=== PATIENT | female | born 2000 | race Caucasian/White ===

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

== ENCOUNTER 2020-07-13 16:57 | Emergency (ER) | payer OTHER ==
[~2020-07-13] VITALS: Ht 152.4 cm; Wt 90.5 kg
[2020-07-13 16:59] VITALS: BP 150/73
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
[2020-07-13 17:52] LABS: BASO % 0 % (0-3); EOS # 0.2 x10^3/uL (0.0-0.7); EOS % 2 % (0-3); HEMATOCRIT 45.9 % (36.0-47.0); HEMOGLOBIN 15.3 g/dL (12.0-15.5); LYMPH # 2.2 x10^3/uL (1.0-4.8); LYMPH % 22 % (24-48); MEAN CORPUSCULAR HEMOGLOBIN 28 pg (25-35); MEAN CORPUSCULAR HGB CONC 33 g/dL (31-37); MEAN CORPUSCULAR VOLUME 84 fL (79-100); MONO # 0.8 x10^3/uL (0.0-1.1); MONO % 8 % (0-9); NEUT # 6.8 x10^3uL (1.8-7.7); NEUT % 68 % (31-73); PLATELET COUNT 296 x10^3/uL (140-400); RED BLOOD COUNT 5.49 x10^6/uL (3.50-5.40); RED CELL DISTRIBUTION WIDTH 14.3 % (11.5-14.5)
[2020-07-13 17:54] LABS: CALCIUM 9.6 mg/dL (8.5-10.1); CREATININE 0.9 mg/dL (0.6-1.0); GFR 80.7; POTASSIUM 3.7 mmol/L (3.5-5.1)
--- NOTE | 2020-07-13 18:04 | EKG ---
[address] [address] Test Date: 2020-07-13 Test Time: 17:40:54 Pat Name: ALEISHA ALICEA Department: Room: Gender: F Rn Procedure: : 2000 Requested By: HERRERA LOVING Order Number: [id number] Reading MD: Measurements Intervals [place] Rate: 89 P: 49 GA: 142 QRS: 19 QRSD: 76 T: 4 QT: 338 QTc: 412 Interpretive Statements SINUS RHYTHM NORMAL ECG RI6.02 Compared to ECG 07/13/2020 17:39:24 No significant changes
[2020-07-13 18:10] LABS: BACTERIA,URINE MOD /HPF (0-FEW); BILIRUBIN,URINE NEG (NEG); CLARITY,URINE CLEAR; COLOR,URINE YELLOW; GLUCOSE,URINE NEG (NEG); NITRITE,URINE NEG (NEG); SQUAMOUS EPITHELIAL CELL,UR FEW /LPF; UROBILINOGEN,URINE 0.2 mg/dL (0.2 mg/dL)
[2020-07-13] MEDS: DICYCLOMINE HCL 20 MG TABLET PO ONE (18:33)
[2020-07-13] MEDS: ONDANSETRON ODT 4 MG TAB.RAPDIS PO ONE (18:33)
== END 2020-07-13 22:03 | disposition short-term general hospital (02) ==
LOC: ER 16:57
DX: S50.812A Abrasion of left forearm, initial encounter (principal); R45.89 Other symptoms and signs involving emotional state; R45.851 Suicidal ideations; F41.9 Anxiety disorder, unspecified; F32.9 Major depressive disorder, single episode, unspecified; Y08.89XA Assault by other specified means, initial encounter; Y93.89 Activity, other specified; Y92.89 Other specified places as the place of occurrence of the external cause; Y99.8 Other external cause status
CPT/HCPCS: 36415; 80048; 81001; 85025; 93005; 99285; Q0162; 87086

== ENCOUNTER 2020-07-21 17:32 | Emergency (ER) | payer OTHER ==
[~2020-07-21] VITALS: Ht 152.4 cm; Wt 90.5 kg
[2020-07-21 19:03] LABS: BASO % 0 % (0-3); EOS # 0.3 x10^3/uL (0.0-0.7); EOS % 3 % (0-3); HEMATOCRIT 46.9 % (36.0-47.0); HEMOGLOBIN 15.7 g/dL (12.0-15.5); LYMPH # 1.8 x10^3/uL (1.0-4.8); LYMPH % 18 % (24-48); MEAN CORPUSCULAR HEMOGLOBIN 28 pg (25-35); MEAN CORPUSCULAR HGB CONC 34 g/dL (31-37); MEAN CORPUSCULAR VOLUME 83 fL (79-100); MONO # 0.8 x10^3/uL (0.0-1.1); MONO % 8 % (0-9); NEUT # 7.3 x10^3uL (1.8-7.7); NEUT % 71 % (31-73); PLATELET COUNT 294 x10^3/uL (140-400); RED BLOOD COUNT 5.66 x10^6/uL (3.50-5.40); RED CELL DISTRIBUTION WIDTH 14.1 % (11.5-14.5); WHITE BLOOD COUNT 10.2 x10^3/uL (4.0-11.0)
[2020-07-21 19:18] LABS: CALCIUM 9.6 mg/dL (8.5-10.1); CREATININE 0.9 mg/dL (0.6-1.0); GFR 80.7
[2020-07-21 19:20] LABS: TOTAL BILIRUBIN 0.3 mg/dL (0.2-1.0)
[2020-07-21 20:18] LABS: BARBITURATES NEG (NEG); BENZODIAZEPINES NEG (NEG); CANNABINOIDS NEG (NEG); COCAINE NEG (NEG); METHADONE NEG (NEG); OPIATES NEG (NEG); PHENCYCLIDINE NEG (NEG)
[2020-07-21 20:27] LABS: AMPHETAMINE/METHAMPHETAMINE NEG (NEG)
[2020-07-21 20:31] LABS: BILIRUBIN,URINE NEG (NEG); CLARITY,URINE CLOUDY; COLOR,URINE YELLOW; GLUCOSE,URINE NEG (NEG)
[2020-07-21 20:32] LABS: BACTERIA,URINE MOD /HPF (0-FEW); NITRITE,URINE NEG (NEG); UROBILINOGEN,URINE 0.2 mg/dL (0.2 mg/dL)
[2020-07-21 20:33] LABS: SQUAMOUS EPITHELIAL CELL,UR MANY /LPF
--- NOTE | 2020-07-21 21:28 | PHYS DOC ---
Past History Past Medical History: Anxiety, Constipation, Depression (HERRERA LOVING APRN) Past Surgical History: No Surgical History (HERRERA LOVING APRN) Smoking: Non-smoker Alcohol Use: None Drug Use: None (HERRERA LOVING APRN) General Adult EDM: Chief Complaint: SUICIDAL IDEATION HPI: HPI: Patient is a 18-year-old female who presents with suicidal ideation. Patient is from [facility]. Patient states "I keep having thoughts that I want to harm myself again, I want to do something with scissors but they took the scissors away from me so I ran away and that is when they brought me here". When asked what her plan is to do she states "I do not know I just want to do something". She has made multiple times in the past and was recently let go from [employer] for noncompliance. PAT team consulted. Patient reporting urinary frequency, denies dysuria. (HERRERA LOVING APRN) Review of Systems: Review of Systems: Constitutional: Denies fever or chills Eyes: Denies change in visual acuity HENT: Denies nasal congestion or sore throat Respiratory: Denies cough or shortness of breath Cardiovascular: Denies chest pain or edema GI: Denies abdominal pain, nausea, vomiting, bloody stools or diarrhea : Denies dysuria, reports urinary frequency Musculoskeletal: Denies back pain or joint pain Integument: Denies rash Neurologic: Denies headache, focal weakness or sensory changes Endocrine: Denies polyuria or polydipsia Lymphatic: Denies swollen glands Psychiatric: Reports depression or anxiety (HERRERA LOVING APRN) Current Medications: Current Meds: Current Medications Medications (Trade) Dose Ordered Sig/Daniel Start Time Stop Time Status Last Admin Dose Admin Fosfomycin Tromethamine (Monurol) 3 gm 1X ONCE 07/21/20 21:30 07/21/20 21:31 (HERRERA LOVING APRN) Allergies: Allergies: Allergies Coded Allergies Type Severity Reaction Last Updated Verified No Known Drug Allergies 07/13/20 No (HERRERA LOVING APRN) Physical Exam: PE: Constitutional: Well developed, well nourished, no acute distress, non-toxic appearance. [] HENT: Normocephalic, atraumatic, bilateral external ears normal, oropharynx moist, no oral exudates, nose normal. [] Eyes: PERRLA, EOMI, conjunctiva normal, no discharge. [] Neck: Normal range of motion, no tenderness, supple, no stridor. [] Cardiovascular:Heart rate regular rhythm, no murmur [] Lungs & Thorax: Bilateral breath sounds clear to auscultation [] Abdomen: Bowel sounds normal, soft, no tenderness, no masses, no pulsatile masses. [] Skin: Warm, dry, no erythema, no rash. [] Back: No tenderness, no CVA tenderness. [] Extremities: No tenderness, no cyanosis, no clubbing, ROM intact, no edema. [] Neurologic: Alert and oriented X 3, normal motor function, normal sensory function, no focal deficits noted. [] Psychologic: Affect anxious, judgement abnormal, tearful (HERRERA LOVING APRN) PE: Constitutional: Well developed, well nourished, no acute distress, non-toxic appearance HENT: Normocephalic, atraumatic Eyes: Conjunctiva normal, no discharge Neck: Normal range of motion, no tenderness, supple Lungs & Thorax: No respiratory distress, equal chest rise and fall Abdomen: Soft, no tenderness Skin: Warm, dry, no erythema, no rash Extremities: No tenderness, ROM intact, no edema Neurologic: Alert and oriented X 3, no focal deficits noted Psychologic: Affect normal, judgment normal (WILDA DUMONT DO) Current Patient Data: Labs: Laboratory Tests Test 07/21/20 18:40 07/21/20 19:52 07/21/20 20:01 White Blood Count 10.2 x10^3/uL (4.0-11.0) Red Blood Count 5.66 x10^6/uL (3.50-5.40) H Hemoglobin 15.7 g/dL (12.0-15.5) H Hematocrit 46.9 % (36.0-47.0) Mean Corpuscular Volume 83 fL (79-100) Mean Corpuscular Hemoglobin 28 pg (25-35) Mean Corpuscular Hemoglobin Concent 34 g/dL (31-37) Red Cell Distribution Width 14.1 % (11.5-14.5) Platelet Count 294 x10^3/uL (140-400) Neutrophils (%) (Auto) 71 % (31-73) Lymphocytes (%) (Auto) 18 % (24-48) L Monocytes (%) (Auto) 8 % (0-9) Eosinophils (%) (Auto) 3 % (0-3) Basophils (%) (Auto) 0 % (0-3) Neutrophils # (Auto) 7.3 x10^3uL (1.8-7.7) Lymphocytes # (Auto) 1.8 x10^3/uL (1.0-4.8) Monocytes # (Auto) 0.8 x10^3/uL (0.0-1.1) Eosinophils # (Auto) 0.3 x10^3/uL (0.0-0.7) Basophils # (Auto) 0.0 x10^3/uL (0.0-0.2) Sodium Level 140 mmol/L (136-145) Potassium Level 4.0 mmol/L (3.5-5.1) Chloride Level 104 mmol/L (98-107) Carbon Dioxide Level 28 mmol/L (21-32) Anion Gap 8 (6-14) Blood Urea Nitrogen 19 mg/dL (7-20) Creatinine 0.9 mg/dL (0.6-1.0) Estimated GFR (Cockcroft-Gault) 80.7 BUN/Creatinine Ratio 21 (6-20) H Glucose Level 102 mg/dL (70-99) H Calcium Level 9.6 mg/dL (8.5-10.1) Total Bilirubin 0.3 mg/dL (0.2-1.0) Aspartate Amino Transferase (AST) 17 U/L (15-37) Alanine Aminotransferase (ALT) 26 U/L (14-59) Alkaline Phosphatase 97 U/L (46-116) Total Protein 8.0 g/dL (6.4-8.2) Albumin 4.0 g/dL (3.4-5.0) Albumin/Globulin Ratio 1.0 (1.0-1.7) Urine Collection Type Unknown Urine Color Yellow Urine Clarity Cloudy Urine pH 6.0 Urine Specific Marshall >=1.030 Urine Protein Neg (NEG-TRACE) Urine Glucose (UA) Neg mg/dL (NEG) Urine Ketones (Stick) 15 mg/dL (NEG) Urine Blood Mod (NEG) Urine Nitrite Neg (NEG) Urine Bilirubin Neg (NEG) Urine Urobilinogen Dipstick 0.2 mg/dL (0.2 mg/dL) Urine Leukocyte Esterase Trace (NEG) Urine RBC 6-10 /HPF (0-2) Urine WBC 5-10 /HPF (0-4) Urine Squamous Epithelial Cells Many /LPF Urine Bacteria Mod /HPF (0-FEW) Urine Opiates Screen Neg (NEG) Urine Methadone Screen Neg (NEG) Urine Barbiturates Neg (NEG) Urine Phencyclidine Screen Neg (NEG) Urine Amphetamine/Methamphetamine Neg (NEG) Urine Benzodiazepines Screen Neg (NEG) Urine Cocaine Screen Neg (NEG) Urine Cannabinoids Screen Neg (NEG) Urine Ethyl Alcohol Neg (NEG) POC Urine HCG, Qualitative hcg negative (Negative) Vital Signs: Vital Signs Date Time Temp Pulse Resp B/P (MAP) Pulse Ox O2 Delivery O2 Flow Rate FiO2 07/21/20 17:40 99.3 90 20 125/82 (96) 99 (HERRERA LOVING APRN) EKG: EKG: [] (HERRERA LOVING APRN) Radiology/Procedures: Radiology/Procedures: [] (HERRERA LOVING APRN) Heart Score: Risk Factors: Risk Factors: DM, Current or recent (<one month) smoker, HTN, HLP, family history of CAD, obesity. Risk Scores: Score 0 - 3: 2.5% MACE over next 6 weeks - Discharge Home Score 4 - 6: 20.3% MACE over next 6 weeks - Admit for Clinical Observation Score 7 - 10: 72.7% MACE over next 6 weeks - Early Invasive Strategies (HERRERA LOVING APRN) Course & Med Decision Making: Course & Med Decision Making Pertinent Labs and Imaging studies reviewed. (See chart for details) []Patient is a 18-year-old female who presents with suicidal ideation. Patient is from [facility]. Patient states "I keep having thoughts that I want to harm myself again, I want to do something with scissors but they took the scissors away from me so I ran away and that is when they brought me here". When asked what her plan is patient states "I do not know I just want to do something". She has made attempts multiple times in the past, and was recently let go from [facility] for noncompliance. PAT team consulted. Patient is also reporting urinary frequency, denies dysuria. UA ordered. PAT team consulted to evaluate patient. CBC, BMP, UA, urine urgency, Covid test ordered. Lab work unremarkable. UA positive for infection. Negative . Fosfomycin given in the emergency room to treat infection. Increase fluids upon discharge. [facility] team counseled patient over Zoom. [facility] Team is calling facilities to find placement for patient. Will call us back when placement has been found. Rapid Covid test has been completed. Impression 1.Suicidal Ideation 2.UTI (HERRERA LOVING APRN) Course & Med Decision Making [id number]-signout received from Dr. Covarrubias for patient pending psychiatric reevaluation. Patient previously had not been accepted for inpatient psychiatric services. Patient with plan for reevaluation in the morning. 0830- Chato (PAT) evaluated patient. Recommend patient safe for discharge back to [facility] with safety plan. Patient stable for discharge with outpatient follow-up with PCP. Discussed findings and plan with patient, who acknowledges understanding and agreement. (WILDA DUMONT DO) Course & Med Decision Making Patient was not seen or evaluated by myself. Did discuss patient's work-up and disposition with SECURITY SYSTEMS SALES REPRESENTATIVE and agreed. Did not see patient over course of shift and handed off to day team. (RYNE COVARRUBIAS MD) Dragon Disclaimer: Dragon Disclaimer: This electronic medical record was generated, in whole or in part, using a voice recognition dictation system. (HERRERA LOVING APRN) Departure Departure: Impression: Primary Impression: Suicidal ideation Additional Impression: Bipolar disorder with depression Disposition: 01 DC HOME SELF CARE/HOMELESS Condition: STABLE Referrals: SANTANA NEVAREZ MD (PCP) Patient Instructions: Suicidal Feelings, How to Help Yourself Additional Instructions: You were seen in the emergency room for suicidal ideation. EMERGENCY DEPARTMENT GENERAL DISCHARGE INSTRUCTIONS Thank you for coming to [facility] (ED) today and trusting us with you care. We trust that you had a positivie experience in our Emergency Department. If you wish to speak to the department management, you may call the director at [phone]. YOUR FOLLOW UP INSTRUCTIONS ARE FOLLOWS: 1. Do you have a private Doctor? If you do not have a private doctor, please ask for a resource list of physicians or clinics that may be able to assist you with foll ow up care. 2. The Emergency Physician has interpreted your x-rays. The X-Ray specialist will also review them. If there is a change in the findings, you will be notified in 48 hours when at all possible. 3. A lab test or culture has been done, your results will be reviewed and you will be notified if you need a change in treatment. ADDITIONAL INSTRUCTIONS AND INFORMATION: 1. Your care today has been supervised by a physician who is specially trained in emergency care. Many problems require more than one evaluation for a complete diagnosis and treatment. We recommend that you schedule your follow up appointment as re commended to ensure complete treatment of you illness or injury. If you are unable to obtain follow up care and continue to have a problem, or if your condition worsens, we recommend that you return to the ED. 2. We are not able to safely determine your condition over the phone nor are we able to give sound medical advice over the phone. For these safety reasons, if you call for medical advice we will ask you to come to the ED for further evaluation. 3. If you have any questions regarding these discharge instructions please call the ED at [phone]. SAFETY INFORMATION: In the interest of safety, wellness, and injury prevention; we encourage you to wear your sealbelt, if you smoke; quite smoking, and we encourage family to use a protective helmet for bicycling and other sporting events that present an increased risk for head injury. IF YOUR SYMPTOMS WORSEN OR NEW SYMPTOMS DEVELOP, OR YOU HAVE CONCERNS ABOUT YOUR CONDITION; OR IF YOUR CONDITION WORSENS WHILE YOU ARE WAITING FOR YOUR FOLLOW UP APPOINTMENT; EITHER CONTACT YOUR PRIMARY CARE DOCTOR, THE PHYSICIAN WHOSE NAME AND NUMBER YOU WERE GIVEN, OR RETURN TO THE ED IMMEDIATELY. HERRERA LOVING APRN Jul 21, 2020 21:28 WILDA DUMONT DO Jul 22, 2020 11:20 RYNE COVARRUBIAS MD Jul 23, 2020 18:09
[2020-07-21] MEDS ORDERED: FOSFOMYCIN TROMETHAMINE 3 GM PACKET PO ONE (21:30)
[2020-07-21 21:52] VITALS: BP 121/76
[2020-07-22 00:50] LABS: ACETAMIN < 2.0 mcg/mL (10-30); ETHANOL < 10 mg/dL (0-10); SALIC < 2.8 mg/dL (2.8-20.0)
[2020-07-22] MEDS ORDERED: ACETAMINOPHEN 500 MG TABLET PO ONE (01:00)
[2020-07-22] MEDS ORDERED: ONDANSETRON ODT 4 MG TAB.RAPDIS PO ONE (01:00)
== END 2020-07-22 11:22 | disposition home or self-care (01) ==
LOC: ER 17:32
DX: R45.851 Suicidal ideations (principal); F31.9 Bipolar disorder, unspecified; N39.0 Urinary tract infection, site not specified; F41.9 Anxiety disorder, unspecified; Z20.822 Contact with and (suspected) exposure to COVID-19
CPT/HCPCS: 36415; 80053; 80307; 80329; 81001; 81025; 85025; 87086; 87426; 96372; 99285; C9803; G0480; J3010; Q0162; U0003

== ENCOUNTER 2020-11-22 11:35 | Emergency (ER) | payer OTHER ==
[~2020-11-22] VITALS: Ht 152.4 cm; Wt 96.0 kg
[2020-11-22 11:35] VITALS: BP 121/76
--- NOTE | 2020-11-22 13:35 | PHYS DOC ---
Past History Past Medical History: Anxiety, Bipolar, Constipation, Depression, Other Additional Past Medical Histor: Intellectual disability. Past Surgical History: No Surgical History Smoking: Non-smoker Alcohol Use: None Drug Use: None General Adult EDM: Chief Complaint: SUICIDAL IDEATION HPI: HPI: Patient is a 20-year-old female coming in via EMS for suicidal ideation. Patient denies a plan. States she is want someone to talk to has had increased stressors after family member recently. Otherwise been well no other complaints. Review of Systems: Review of Systems: All other systems within normal limits except for as noted in the HPI Allergies: Allergies: Allergies Coded Allergies Type Severity Reaction Last Updated Verified No Known Drug Allergies 11/22/20 No Physical Exam: PE: Constitutional: Well developed, well nourished, no acute distress, non-toxic appearance. [] HENT: Normocephalic, atraumatic, bilateral external ears normal, nose normal. [] Eyes: PERRLA, conjunctiva normal, no discharge. [] Neck: No rigidity, supple, no stridor. [] Cardiovascular: Regular rate and rhythm, brisk cap refill [] Lungs & Thorax: Non labored symmetric respirations, no tachypnea or respiratory distress [] Abdomen: Soft, nondistended. Skin: Warm, dry, no erythema, no rash. [] Back: Unremarkable Extremities: No deformities, range of motion grossly intact, no lower extremity edema [] Neurologic: Alert and oriented X 3, no focal deficits noted. [] Psychologic: Affect normal, judgement normal, mood normal. [] Current Patient Data: Labs: Laboratory Tests Test 11/22/20 12:28 POC Urine HCG, Qualitative hcg negative (Negative) Vital Signs: Vital Signs Date Time Temp Pulse Resp B/P (MAP) Pulse Ox O2 Delivery O2 Flow Rate FiO2 11/22/20 11:35 99.2 98 22 121/76 (91) 99 EKG: EKG: [] Radiology/Procedures: Radiology/Procedures: [] Heart Score: C/O Chest Pain: No Risk Factors: Risk Factors: DM, Current or recent (<one month) smoker, HTN, HLP, family history of CAD, obesity. Risk Scores: Score 0 - 3: 2.5% MACE over next 6 weeks - Discharge Home Score 4 - 6: 20.3% MACE over next 6 weeks - Admit for Clinical Observation Score 7 - 10: 72.7% MACE over next 6 weeks - Early Invasive Strategies Course & Med Decision Making: Course & Med Decision Making After PAT evaluation, discharged with safety plan Brad Disclaimer: Brad Disclaimer: This electronic medical record was generated, in whole or in part, using a voice recognition dictation system. Departure Departure: Impression: Primary Impression: Passive suicidal ideations Disposition: HOME / SELF CARE / HOMELESS Condition: STABLE Referrals: DANIEL CLARK MD (PCP) Patient Instructions: Suicidal Feelings, How to Help Yourself JENNIFER RODGERS MD November 22, 2020 13:35
== END 2020-11-22 15:20 | disposition home or self-care (01) ==
LOC: ER 11:35
DX: R45.851 Suicidal ideations (principal); F41.9 Anxiety disorder, unspecified; F32.9 Major depressive disorder, single episode, unspecified
CPT/HCPCS: 81025; 99285

== ENCOUNTER → 2021-01-12 | Outpatient (CLI) | payer MEDICARE, OTHER ==
[2021-01-12 10:21] LABS: BASO % 0 % (0-3); EOS # 0.4 x10^3/uL (0.0-0.7); EOS % 5 % (0-3); HEMOGLOBIN 14.7 g/dL (12.0-15.5); LYMPH # 1.9 x10^3/uL (1.0-4.8); LYMPH % 23 % (24-48); MEAN CORPUSCULAR HEMOGLOBIN 28 pg (25-35); MEAN CORPUSCULAR HGB CONC 33 g/dL (31-37); MEAN CORPUSCULAR VOLUME 85 fL (79-100); MONO # 0.8 x10^3/uL (0.0-1.1); MONO % 9 % (0-9); NEUT # 5.3 x10^3uL (1.8-7.7); NEUT % 64 % (31-73); PLATELET COUNT 286 x10^3/uL (140-400); RED BLOOD COUNT 5.19 x10^6/uL (3.50-5.40); RED CELL DISTRIBUTION WIDTH 14.4 % (11.5-14.5); WHITE BLOOD COUNT 8.4 x10^3/uL (4.0-11.0)
[2021-01-12 10:33] LABS: ALBUMIN 3.8 g/dL (3.4-5.0); ALBUMIN/GLOBULIN RATIO 1.1 (1.0-1.7); CALCIUM 9.1 mg/dL (8.5-10.1); CREATININE 0.8 mg/dL (0.6-1.0); GFR 91.4; POTASSIUM 4.2 mmol/L (3.5-5.1); TOTAL BILIRUBIN 0.4 mg/dL (0.2-1.0); TOTAL PROTEIN 7.4 g/dL (6.4-8.2)
[2021-01-12 14:55] LABS: FREE T4 1.19 ng/dL (0.76-1.46); THYROID STIM HORMONE (TSH) 1.777 uIU/mL (0.358-3.740)
[2021-01-12 20:07] LABS: PROLACTIN 19.7 ng/mL (4.8-23.3)
[2021-01-12 23:06] LABS: HEMOGLOBIN A1C 5.7 % (4.8-5.6)
== END ==
LOC: LAB 08:43
PROVIDERS: ATTEND Clinical Nurse Specialist Psychiatric/Mental Health, Adult
DX: Z79.899 Other long term (current) drug therapy (principal)
CPT/HCPCS: 36415; 80053; 80061; 83036; 84146; 84439; 84443; 84480; 85025

== ENCOUNTER 2021-03-22 17:15 | Emergency (ER) | payer MEDICARE, OTHER ==
[~2021-03-22] VITALS: Ht 152.4 cm; Wt 95.1 kg
[2021-03-22] MEDS ORDERED: CEPH500T PO (17:32)
--- NOTE | 2021-03-22 17:32 | PHYS DOC ---
Past History Past Medical History: Anxiety, Bipolar, Constipation, Depression, Other Additional Past Medical Histor: Intellectual disability. (CONSTANTINE HENDRICKS APRN) Past Surgical History: No Surgical History (CONSTANTINE HENDRICKS APRN) Smoking: Non-smoker Alcohol Use: None Drug Use: None (CONSTANTINE HENDRICKS APRN) General Adult EDM: Chief Complaint: MANIC BEHAVIOR HPI: HPI: Patient is a 20-year-old female who presents to the ER for psychiatric evaluation. Patient states that she resides in a detention and got in an argument with another person who resides in the home and she ran away. The family found her and they got in a verbal argument and the police were involved and referred her to the ER for psychiatric evaluation. Patient reports that she did cut her left forearm with a rock that she had found to release but has no intention to commit suicide or homicide. Patient is alert and oriented x4. Patient is also concerned because she has a scratch to the posterior aspect of her right ankle and to believes it is getting infected since it does have surrounding redness and warmth. (CONSTANTINE HENDRICKS APRN) Review of Systems: Review of Systems: 14 body systems of the review of systems have been reviewed. See HPI for pertinent positive and negative responses, otherwise all other systems are negative, nonpertinent or noncontributory (CONSTANTINE HENDRICKS APRN) Allergies: Allergies: Allergies Coded Allergies Type Severity Reaction Last Updated Verified No Known Drug Allergies 11/22/20 No (CONSTANTINE HENDRICKS APRN) Physical Exam: PE: Constitutional: Well developed, well nourished, no acute distress, non-toxic appearance. [] HENT: Normocephalic, atraumatic, bilateral external ears normal, oropharynx moist, no oral exudates, nose normal. [] Eyes: PERRLA, EOMI, conjunctiva normal, no discharge. [] Neck: Normal range of motion, no stridor Cardiovascular:Heart rate regular rhythm, no murmur [] Lungs & Thorax: Bilateral breath sounds clear to auscultation [] Abdomen: Bowel sounds normal, soft, no tenderness, no masses, no pulsatile masses. [] Skin: Warm, dry, superficial lacerations noted to left forearm that do not require sutures and have no surrounding signs of infection, patient has a wound to the posterior aspect of her right ankle with scabbing and has surrounding redness and warmth without any drainage Back: No tenderness, normal range of motion Extremities: No tenderness, no cyanosis, no clubbing, ROM intact, no edema. [] Neurologic: Alert and oriented X 3, normal motor function, normal sensory function, no focal deficits noted. [] Psychologic: Affect normal, judgement normal, tearful (CONSTANTINE HENDRICKS APRN) Current Patient Data: Labs: Laboratory Tests Test 03/22/21 17:38 03/22/21 17:50 03/22/21 18:21 Urine Collection Type Unknown Urine Color Yellow Urine Clarity Clear Urine pH 5.5 Urine Specific Logan >=1.030 Urine Protein Trace Urine Glucose (UA) Neg mg/dL Urine Ketones (Stick) >=160 mg/dL Urine Blood Neg Urine Nitrite Neg Urine Bilirubin Mod Urine Urobilinogen Dipstick 0.2 mg/dL Urine Leukocyte Esterase Neg Urine RBC 0 /HPF Urine WBC 5-10 /HPF Urine Squamous Epithelial Cells Mod /LPF Urine Bacteria Many /HPF Urine Mucus Marked /LPF Sodium Level 143 mmol/L Potassium Level 3.8 mmol/L Chloride Level 105 mmol/L Carbon Dioxide Level 25 mmol/L Anion Gap 13 Blood Urea Nitrogen 14 mg/dL Creatinine 0.9 mg/dL Estimated GFR (Cockcroft-Gault) 79.8 BUN/Creatinine Ratio 16 Glucose Level 102 mg/dL Calcium Level 10.1 mg/dL Total Bilirubin 0.7 mg/dL Aspartate Amino Transf (AST/SGOT) 24 U/L Alanine Aminotransferase (ALT/SGPT) 33 U/L Alkaline Phosphatase 101 U/L Total Protein 7.4 g/dL Albumin 4.3 g/dL Albumin/Globulin Ratio 1.4 Urine Opiates Screen Neg Urine Methadone Screen Neg Urine Barbiturates Neg Urine Phencyclidine Screen Neg Urine Amphetamine/Methamphetamine Neg Urine Benzodiazepines Screen Neg Urine Cocaine Screen Neg Urine Cannabinoids Screen Neg Urine Ethyl Alcohol Neg Bedside Urine HCG, Qualitative hcg negative White Blood Count 9.4 x10^3/uL Red Blood Count 5.10 x10^6/uL Hemoglobin 14.6 g/dL Hematocrit 43.4 % Mean Corpuscular Volume 85 fL Mean Corpuscular Hemoglobin 29 pg Mean Corpuscular Hemoglobin Concent 34 g/dL Red Cell Distribution Width 14.3 % Platelet Count 298 x10^3/uL Neutrophils (%) (Auto) 63 % Lymphocytes (%) (Auto) 26 % Monocytes (%) (Auto) 9 % Eosinophils (%) (Auto) 2 % Basophils (%) (Auto) 0 % Neutrophils # (Auto) 5.9 x10^3uL Lymphocytes # (Auto) 2.5 x10^3/uL Monocytes # (Auto) 0.9 x10^3/uL Eosinophils # (Auto) 0.2 x10^3/uL Basophils # (Auto) 0.0 x10^3/uL Current Medications Medications (Trade) Dose Ordered Sig/Daniel Route PRN Reason Start Time Stop Time Status Last Admin Dose Admin Cephalexin HCl (Keflex) 500 mg 1X ONCE PO 03/22/21 17:30 03/22/21 17:31 DC 03/22/21 17:59 (CONSTANTINE HENDRICKS APRN) EKG: EKG: [] (CONSTANTINE HENDRICKS APRN) Radiology/Procedures: Radiology/Procedures: [] (CONSTANTINE HENDRICKS APRN) Heart Score: C/O Chest Pain: No Risk Factors: Risk Factors: DM, Current or recent (<one month) smoker, HTN, HLP, family history of CAD, obesity. Risk Scores: Score 0 - 3: 2.5% MACE over next 6 weeks - Discharge Home Score 4 - 6: 20.3% MACE over next 6 weeks - Admit for Clinical Observation Score 7 - 10: 72.7% MACE over next 6 weeks - Early Invasive Strategies (CONSTANTINE HENDRICKS APRN) Course & Med Decision Making: Course & Med Decision Making Pertinent Labs and Imaging studies reviewed. (See chart for details) [] Patient is a 20-year-old female being seen in the ER for psychiatric evaluation after getting into an argument with another member of the detention. Patient did self-harm by cutting her left forearm with a rock that she had found but has no suicidal or homicidal ideation. Lacerations are superficial and do not require suturing. Patient does have a old wound to her right p osterior ankle with surrounding redness and warmth and does require antibiotics and she was given her first dose in the ER. Screening lab work obtained for medical clearance. Patient to be evaluated by the psychiatric assessment team. 1900: Patient is medically clear lab work is unremarkable. Her urinalysis was contaminated with moderate epithelial cells, negative leuks.I discussed patients case with Dr. Covarrubias and he will assume patient care at this time. Awaiting PAT consult. (CONSTANTINE HENDRICKS APRN) Course & Med Decision Making Did not see or evaluate patient. Did not discuss patient with DIRECTOR OF RESOURCE DEVELOPMENT. Agree with DIRECTOR OF RESOURCE DEVELOPMENT's work-up and disposition per note. (RYNE COVARRUBIAS MD) Dragon Disclaimer: Dragon Disclaimer: This electronic medical record was generated, in whole or in part, using a voice recognition dictation system. (CONSTANTINE HENDRICKS APRN) Departure Departure: Disposition: HOME / SELF CARE / HOMELESS Condition: GOOD Referrals: DANIEL CLARK MD (PCP) Scripts Cephalexin (CEPHALEXIN) 500 Mg Tablet 1 TAB PO QID for laceration for 5 Days, #20 TAB 0 Refills Prov: CONSTANTINE HENDRICKS APRN 03/22/21 CONSTANTINE HENDRICKS APRN Mar 22, 2021 17:32 RYNE COVARRUBIAS MD Mar 22, 2021 20:33
[2021-03-22] MEDS: CEPHALEXIN 250 MG CAPSULE PO ONE (17:59)
[2021-03-22 18:03] LABS: BARBITURATES NEG (NEG); BENZODIAZEPINES NEG (NEG); CANNABINOIDS NEG (NEG); COCAINE NEG (NEG); METHADONE NEG (NEG); OPIATES NEG (NEG); PHENCYCLIDINE NEG (NEG)
[2021-03-22 18:05] LABS: CALCIUM 10.1 mg/dL (8.5-10.1); CREATININE 0.9 mg/dL (0.6-1.0); GFR 79.8; POTASSIUM 3.8 mmol/L (3.5-5.1)
[2021-03-22 18:07] LABS: AMPHETAMINE/METHAMPHETAMINE NEG (NEG)
[2021-03-22 18:11] LABS: ALBUMIN 4.3 g/dL (3.4-5.0); ALBUMIN/GLOBULIN RATIO 1.4 (1.0-1.7); TOTAL BILIRUBIN 0.7 mg/dL (0.2-1.0); TOTAL PROTEIN 7.4 g/dL (6.4-8.2)
[2021-03-22 18:15] LABS: BILIRUBIN,URINE MOD (NEG); CLARITY,URINE CLEAR; COLOR,URINE YELLOW; GLUCOSE,URINE NEG (NEG)
[2021-03-22 18:16] LABS: BACTERIA,URINE MANY /HPF (0-FEW); NITRITE,URINE NEG (NEG); RBC,URINE 0 /HPF (0-2); SQUAMOUS EPITHELIAL CELL,UR MOD /LPF; UROBILINOGEN,URINE 0.2 mg/dL (0.2 mg/dL)
[2021-03-22 18:52] LABS: BASO % 0 % (0-3); EOS # 0.2 x10^3/uL (0.0-0.7); EOS % 2 % (0-3); HEMATOCRIT 43.4 % (36.0-47.0); HEMOGLOBIN 14.6 g/dL (12.0-15.5); LYMPH # 2.5 x10^3/uL (1.0-4.8); LYMPH % 26 % (24-48); MEAN CORPUSCULAR HEMOGLOBIN 29 pg (25-35); MEAN CORPUSCULAR HGB CONC 34 g/dL (31-37); MEAN CORPUSCULAR VOLUME 85 fL (79-100); MONO # 0.9 x10^3/uL (0.0-1.1); MONO % 9 % (0-9); NEUT # 5.9 x10^3uL (1.8-7.7); NEUT % 63 % (31-73); PLATELET COUNT 298 x10^3/uL (140-400); RED CELL DISTRIBUTION WIDTH 14.3 % (11.5-14.5); WHITE BLOOD COUNT 9.4 x10^3/uL (4.0-11.0)
[2021-03-22 22:11] VITALS: BP 148/61
== END 2021-03-22 22:16 | disposition home or self-care (01) ==
LOC: ER 17:15
DX: Z00.8 Encounter for other general examination (principal); S51.812A Laceration without foreign body of left forearm, initial encounter; F41.9 Anxiety disorder, unspecified; F31.9 Bipolar disorder, unspecified; X78.8XXA Intentional self-harm by other sharp object, initial encounter; Y93.89 Activity, other specified; Y92.89 Other specified places as the place of occurrence of the external cause; Y99.8 Other external cause status
CPT/HCPCS: 36415; 80053; 80307; 81001; 81025; 85025; 87086; 99283

== ENCOUNTER 2021-03-23 01:14 | Emergency (ER) | payer MEDICARE, OTHER ==
[~2021-03-23] VITALS: Ht 152.4 cm; Wt 95.1 kg
[~2021-03-23 01:14] MED LIST: CEPH500T PO
--- NOTE | 2021-03-23 01:34 | PHYS DOC ---
Past History Past Medical History: Anxiety, Bipolar, Constipation, Depression, Other Additional Past Medical Histor: Intellectual disability. syncope (RYNE COVARRUBIAS MD) Past Surgical History: No Surgical History (RYNE COVARRUBIAS MD) Smoking: Non-smoker Alcohol Use: None Drug Use: None (RYNE COVARRUBIAS MD) Adult General Chief Complaint Chief Complaint: PSYCH EVALUATION HPI HPI Patient is a 20-year-old female with a past medical history significant for anxiety, depression and suicidal ideations and attempts who presents with a chief complaint of suicidal ideation. States she was in the ED earlier with similar symptoms but then felt that she has been a bother and felt like to go home. States that shortly after leaving she began having these feelings again like she would prefer to be , and started thinking about cutting her wrists or jumping in front of a train. Denies any alcohol or drug use. States she would like to be admitted to an inpatient facility to get help. Denies any recent traumas, travels, illnesses, chest pain, shortness of breath, abdominal pain, nausea, vomiting, dysuria, hematuria, blood in the stool or diarrhea. Denies any known ill contacts. (RYNE COVARRUBIAS MD) Review of Systems Review of Systems Review of systems otherwise unremarkable except noted in HPI (RYNE COVARRUBIAS MD) Allergies Allergies Allergies Coded Allergies Type Severity Reaction Last Updated Verified No Known Drug Allergies 03/23/21 No (RYNE COVARRUBIAS MD) Physical Exam Physical Exam Constitutional: Well developed, well nourished, no acute distress, non-toxic appearance. [] HENT: Normocephalic, atraumatic, bilateral external ears normal, oropharynx moist, no oral exudates, nose normal. [] Eyes: conjunctiva normal, no discharge. [] Neck: Normal range of motion, no tenderness, supple, no stridor. [] Cardiovascular:Heart rate regular rhythm, no murmur [] Lungs & Thorax: Bilateral breath sounds clear to auscultation [] Abdomen: soft, no tenderness, no masses, no pulsatile masses. [] Skin: Warm, dry, no erythema, no rash. [] Back: No tenderness, no CVA tenderness. [] Extremities: No tenderness, no cyanosis, no clubbing, ROM intact, no edema. [] Neurologic: Alert and oriented X 3, normal motor function, normal sensory function, no focal deficits noted. [] Psychologic: Affect normal, judgement normal, mood normal. [] (RYNE COVARRUBIAS MD) Current Patient Data Vital Signs Vital Signs Date Time Temp Pulse Resp B/P (MAP) Pulse Ox O2 Delivery O2 Flow Rate FiO2 03/23/21 01:22 98.1 93 18 144/92 (109) 98 Room Air (RYNE COVARRUBIAS MD) EKG EKG [] (RYNE COVARRUBIAS MD) Radiology/Procedures Radiology/Procedures [] (RYNE COVARRUBIAS MD) Heart Score C/O Chest Pain: No Risk Factors: Risk Factors: DM, Current or recent (<one month) smoker, HTN, HLP, family history of CAD, obesity. Risk Scores: Risk Factors: DM, Current or recent (<one month) smoker, HTN, HLP, family history of CAD, obesity. (RYNE COVARRUBIAS MD) Course & Med Decision Making Course & Med Decision Making Patient is 20-year-old female who presents with suicidal ideations and plan Vital signs not concerning. Physical exam noted above. Patient was just in the emergency department with full medical work-up. Rapid Covid negative. Laboratory analysis not concerning. PAT team felt patient was appropriate for inpatient admission as this patient as she states that she goes home she feels like she will harm herself. Pending placement, most likely signature. Patient care handed off to day team pending placement. (RYNE COVARRUBIAS MD) Course & Med Decision Making 0600- Sign out received from Dr. Covarrubias for patient with suicidal ideation and plan pending inpatient psychiatric placement. 0800- Acceptance to [facility] for inpatient psychiatric services with Dr. Phipps accepting. Discussed findings and plan with patient, who acknowledges understanding and agreement. (WILDA DUMONT DO) Dragon Disclaimer Dragon Disclaimer This electronic medical record was generated, in whole or in part, using a voice recognition dictation system. (RYNE COVARRUBIAS MD) Departure Departure: Impression: Primary Impression: Suicidal ideation [facility] Condition: GOOD Referrals: DANIEL CLARK MD (PCP) RYNE COVARRUBIAS MD Mar 23, 2021 01:33 WILDA DUMONT DO Mar 23, 2021 14:19
[2021-03-23 11:11] VITALS: BP 110/61
== END 2021-03-23 12:30 ==
LOC: ER 01:14
DX: R45.851 Suicidal ideations (principal); F41.9 Anxiety disorder, unspecified; F31.9 Bipolar disorder, unspecified; Z20.822 Contact with and (suspected) exposure to COVID-19
CPT/HCPCS: 87426; 99285; C9803; U0003

== ENCOUNTER 2021-04-27 15:15 | Emergency (ER) | payer MEDICARE, OTHER ==
[~2021-04-27] VITALS: Ht 152.4 cm; Wt 96.0 kg
[2021-04-27 16:02] LABS: BASO # 0.1 x10^3/uL (0.0-0.2); BASO % 1 % (0-3); EOS # 0.2 x10^3/uL (0.0-0.7); EOS % 2 % (0-3); HEMATOCRIT 44.5 % (36.0-47.0); HEMOGLOBIN 14.9 g/dL (12.0-15.5); LYMPH % 21 % (24-48); MEAN CORPUSCULAR HEMOGLOBIN 29 pg (25-35); MEAN CORPUSCULAR HGB CONC 34 g/dL (31-37); MEAN CORPUSCULAR VOLUME 86 fL (79-100); MONO % 11 % (0-9); NEUT # 6.4 x10^3uL (1.8-7.7); NEUT % 66 % (31-73); PLATELET COUNT 270 x10^3/uL (140-400); RED CELL DISTRIBUTION WIDTH 14.7 % (11.5-14.5); WHITE BLOOD COUNT 9.8 x10^3/uL (4.0-11.0)
[2021-04-27 16:12] LABS: CALCIUM 9.9 mg/dL (8.5-10.1); CREATININE 0.8 mg/dL (0.6-1.0); GFR 91.4; POTASSIUM 4.2 mmol/L (3.5-5.1)
[2021-04-27 16:18] LABS: ALBUMIN 4.1 g/dL (3.4-5.0); MAGNESIUM 2.1 mg/dL (1.8-2.4); TOTAL BILIRUBIN 0.6 mg/dL (0.2-1.0); TOTAL PROTEIN 8.1 g/dL (6.4-8.2)
[2021-04-27 16:19] LABS: BARBITURATES NEG (NEG); BENZODIAZEPINES NEG (NEG); CANNABINOIDS NEG (NEG); COCAINE NEG (NEG); METHADONE NEG (NEG); OPIATES NEG (NEG); PHENCYCLIDINE NEG (NEG)
--- NOTE | 2021-04-27 16:20 | RAD ---
XR EXAM OF ANKLE_RIGHT 3VIEWS Clinical indications: Reason: pain / Spl. Instructions: / History: Findings: No acute fracture or dislocation or osteolytic process is evident. The mortise ankle joint is intact. IMPRESSION: No acute osseous abnormality is evident. Electronically signed by: Lex Bhatt MD (04/27/2021 4:17 PM) [id number]
[2021-04-27 16:23] LABS: AMPHETAMINE/METHAMPHETAMINE NEG (NEG)
[2021-04-27 16:23] LABS: ACETAMIN < 2.0 mcg/mL (10-30); ETHANOL < 10 mg/dL (0-10); SALIC 2.2 mg/dL (2.8-20.0)
[2021-04-27 16:35] LABS: BILIRUBIN,URINE NEG (NEG); CLARITY,URINE CLEAR; COLOR,URINE YELLOW; GLUCOSE,URINE NEG (NEG)
[2021-04-27 16:36] LABS: BACTERIA,URINE MANY /HPF (0-FEW); NITRITE,URINE NEG (NEG); SQUAMOUS EPITHELIAL CELL,UR MOD /LPF; UROBILINOGEN,URINE 0.2 mg/dL (0.2 mg/dL)
[2021-04-27] MEDS: IBUPROFEN 600 MG TABLET. PO ONE (17:52)
[2021-04-27] MEDS: guaiFENesin 300 MG/15 ML LIQUID PO ONE (19:33)
--- NOTE | 2021-04-27 23:37 | PHYS DOC ---
Past History Past Medical History: Anxiety, Bipolar, Constipation, Depression, Other Additional Past Medical Histor: Intellectual disability. syncope (WILDA DUMONT DO) Past Surgical History: No Surgical History (WILDA DUMONT DO) Smoking: Non-smoker Alcohol Use: None Drug Use: None (WILDA DUMONT DO) General Adult EDM: Chief Complaint: SUICIDAL IDEATION HPI: HPI: 20-year-old female presents with report of suicidal ideation and depression that has been ongoing since being discharged from [facility] in February. Patient reports increasing thoughts. Patient reports she has thought about cutting herself however has not done so. Patient does have significant psychiatric history with admissions to inpatient psych. Patient reports that th last time she was seen for similar type of thoughts she was discharged home with a safety plan however patient reports symptoms have continued to point where she feels she needs a inpatient admission. Denies any ingestion of medications. Denies use of drugs. Patient also reports history of right ankle pain that has been ongoing for the past several weeks after mechanical trip and fall. Denies . (WILDA DUMONT DO) Review of Systems: Review of Systems: Constitutional: Denies fever or chills Eyes: Denies redness or eye pain HENT: Denies nasal congestion or sore throat Respiratory: Denies cough or shortness of breath Cardiovascular: Denies chest pain or palpitations GI: Denies abdominal pain, nausea, or vomiting : Denies dysuria or hematuria Musculoskeletal: Denies back pain; reports right ankle pain Integument: Denies rash or skin lesions Neurologic: Denies headache, focal weakness or sensory changes Complete systems were reviewed and found to be within normal limits, except as documented in this note. (WILDA DUMONT DO) Current Medications: Current Meds: Current Medications Medications (Trade) Dose Ordered Sig/Daniel Start Time Stop Time Status Last Admin Dose Admin Guaifenesin (Robitussin) 300 mg 1X ONCE 04/27/21 19:30 04/27/21 19:31 DC 04/27/21 19:33 300 MG Ibuprofen (Motrin) 600 mg 1X ONCE 04/27/21 16:30 04/27/21 16:31 DC 04/27/21 17:52 600 MG (WILDA DUMONT DO) Allergies: Allergies: Allergies Coded Allergies Type Severity Reaction Last Updated Verified No Known Drug Allergies 03/23/21 No (WILDA DUMONT DO) Physical Exam: PE: Constitutional: Well developed, well nourished, no acute distress, non-toxic a ppearance HENT: Normocephalic, atraumatic Eyes: PERRL, EOMI, conjunctiva normal, no discharge Neck: Normal range of motion, no tenderness, supple Lungs & Thorax: No respiratory distress, equal chest rise and fall Abdomen: Soft, no tenderness Skin: Warm, dry, no erythema, no rash Extremities: Right lateral malleolar tenderness, anterior drawer test negative, no edema Neurologic: Alert and oriented X 3, normal motor function, normal sensory function, no focal deficits noted Psychologic: Affect anxious, judgment abnormal, reports suicidal ideation with plan (WILDA DUMONT DO) Current Patient Data: Labs: Laboratory Tests Test 04/27/21 15:23 04/27/21 15:30 04/27/21 15:40 04/27/21 16:15 SARS-CoV-2 Antigen (Rapid) Negative (NEGATIVE) White Blood Count 9.8 x10^3/uL (4.0-11.0) Red Blood Count 5.20 x10^6/uL (3.50-5.40) Hemoglobin 14.9 g/dL (12.0-15.5) Hematocrit 44.5 % (36.0-47.0) Mean Corpuscular Volume 86 fL (79-100) Mean Corpuscular Hemoglobin 29 pg (25-35) Mean Corpuscular Hemoglobin Concent 34 g/dL (31-37) Red Cell Distribution Width 14.7 % (11.5-14.5) H Platelet Count 270 x10^3/uL (140-400) Neutrophils (%) (Auto) 66 % (31-73) Lymphocytes (%) (Auto) 21 % (24-48) L Monocytes (%) (Auto) 11 % (0-9) H Eosinophils (%) (Auto) 2 % (0-3) Basophils (%) (Auto) 1 % (0-3) Neutrophils # (Auto) 6.4 x10^3uL (1.8-7.7) Lymphocytes # (Auto) 2.0 x10^3/uL (1.0-4.8) Monocytes # (Auto) 1.0 x10^3/uL (0.0-1.1) Eosinophils # (Auto) 0.2 x10^3/uL (0.0-0.7) Basophils # (Auto) 0.1 x10^3/uL (0.0-0.2) Sodium Level 138 mmol/L (136-145) Potassium Level 4.2 mmol/L (3.5-5.1) Chloride Level 102 mmol/L (98-107) Carbon Dioxide Level 26 mmol/L (21-32) Anion Gap 10 (6-14) Blood Urea Nitrogen 11 mg/dL (7-20) Creatinine 0.8 mg/dL (0.6-1.0) Estimated GFR (Cockcroft-Gault) 91.4 BUN/Creatinine Ratio 14 (6-20) Glucose Level 88 mg/dL (70-99) Calcium Level 9.9 mg/dL (8.5-10.1) Magnesium Level 2.1 mg/dL (1.8-2.4) Total Bilirubin 0.6 mg/dL (0.2-1.0) Aspartate Amino Transferase (AST) 47 U/L (15-37) H Alanine Aminotransferase (ALT) 41 U/L (14-59) Alkaline Phosphatase 92 U/L (46-116) Total Protein 8.1 g/dL (6.4-8.2) Albumin 4.1 g/dL (3.4-5.0) Albumin/Globulin Ratio 1.0 (1.0-1.7) Salicylates Level 2.2 mg/dL (2.8-20.0) L Salicylate Last Dose Date Salicylate Last Dose Time Acetaminophen Level < 2.0 mcg/mL (10-30) L Acetaminophen Last Dose Date Acetaminophen Last Dose Time Ethyl Alcohol Level < 10 mg/dL (0-10) Urine Collection Type Unknown Urine Color Yellow Urine Clarity Clear Urine pH 5.5 Urine Specific Spring >=1.030 Urine Protein Neg (NEG-TRACE) Urine Glucose (UA) Neg mg/dL (NEG) Urine Ketones (Stick) 15 mg/dL (NEG) Urine Blood Neg (NEG) Urine Nitrite Neg (NEG) Urine Bilirubin Neg (NEG) Urine Urobilinogen Dipstick 0.2 mg/dL (0.2 mg/dL) Urine Leukocyte Esterase Trace (NEG) Urine RBC 1-2 /HPF (0-2) Urine WBC 11-20 /HPF (0-4) Urine Squamous Epithelial Cells Mod /LPF Urine Bacteria Many /HPF (0-FEW) Urine Opiates Screen Neg (NEG) Urine Methadone Screen Neg (NEG) Urine Barbiturates Neg (NEG) Urine Phencyclidine Screen Neg (NEG) Urine Amphetamine/Methamphetamine Neg (NEG) Urine Benzodiazepines Screen Neg (NEG) Urine Cocaine Screen Neg (NEG) Urine Cannabinoids Screen Neg (NEG) Urine Ethyl Alcohol Neg (NEG) POC Urine HCG, Qualitative hcg negative (Negative) Vital Signs: Vital Signs Date Time Temp Pulse Resp B/P (MAP) Pulse Ox O2 Delivery O2 Flow Rate FiO2 04/27/21 15:20 98.9 88 18 135/79 (97) (WILDA DUMONT DO) Vital Signs: Vital Signs Date Time Temp Pulse Resp B/P (MAP) Pulse Ox O2 Delivery O2 Flow Rate FiO2 04/27/21 15:20 98.9 88 18 135/79 (97) 04/28/21 08:00 100 04/28/21 19:29 Room Air Vital Signs Date Time Temp Pulse Resp B/P (MAP) Pulse Ox O2 Delivery O2 Flow Rate FiO2 04/29/21 12:45 98.8 92 16 120/64 (82) 97 04/28/21 19:29 Room Air (NEAL VILLARREAL DO) EKG: EKG: [] (WILDA DUMONT DO) Radiology/Procedures: Radiology/Procedures: PROCEDURE: ANKLE RIGHT 3V XR EXAM OF ANKLE_RIGHT 3VIEWS Clinical indications: Reason: pain / Spl. Instructions: / History: Findings: No acute fracture or dislocation or osteolytic process is evident. The mortise ankle joint is intact. IMPRESSION: No acute osseous abnormality is evident. Electronically signed by: Lex Bhatt MD (04/27/2021 4:17 PM) [id number] (WILDA DUMONT DO) Heart Score: C/O Chest Pain: N/A (WILDA DUMONT DO) Course & Med Decision Making: Course & Med Decision Making Pertinent Labs and Imaging studies reviewed. (See chart for details) Patient presents with report of depression with suicidal ideation and plan. Reports has been ongoing since being discharged from [facility] in February. Patient reports symptoms have increased. History of recent ED visit for same with discharged home with safety plan. Patient reports concern that symptoms have escalated to point where she requires a inpatient admission. Patient also complaining of right ankle pain. Labs obtained and posted to chart. UA with signs of contamination. Otherwise labs appear unremarkable. X-ray of right ankle obtained without signs of acute fracture or dislocation. Patient medically cleared for psychiatric evaluation. Psychiatric assessment team evaluation performed with recommendation for inpatient psychiatric placement. Awaiting acceptance for inpatient psychiatric services. 0600-Sign out given to Dr. Villeda for further evaluation and final disposition. Discussed current findings and plan with patient, who acknowledges understanding and agreement. (WILDA DUMONT DO) Course & Med Decision Making The patient is medically stable for behavioral health admission. She has had no outbursts of behavior while in the emergency room. (SAEED HOOVER DO) Course & Med Decision Making I assumed complete care of patient after comprehensive signout from off going physician. Patient remains actively suicidal but has had no issues while in ER pending inpatient hospital transfer. Patient finally accepted to under the care of Dr. Velazquez for hospital transfer and subsequent inpatient psychiatric admission (NEAL VILLARREAL DO) Dragon Disclaimer: Dragon Disclaimer: This electronic medical record was generated, in whole or in part, using a voice recognition dictation system. (WILDA DUMONT DO) Departure Departure: Impression: Primary Impression: Suicidal ideation Additional Impression: Right ankle sprain Qualified Codes: S93.401A - Sprain of unspecified ligament of right ankle, initial encounter Disposition: [address] [place] [address] () Admitting Physician: Other (Dr. Velazquez) (NEAL VILLARREAL DO) Condition: STABLE Referrals: DANIEL CLARK MD (PCP) WILDA DUMONT DO Apr 27, 2021 23:37 SAEED HOOVER DO Apr 28, 2021 20:54 NEAL VILLARREAL DO Apr 29, 2021 16:19
[2021-04-28] MEDS: IBUPROFEN 600 MG TABLET. PO ONE (09:06)
[2021-04-28] MEDS: CEPHALEXIN 250 MG CAPSULE PO ONE ×2 (13:12→21:45)
[2021-04-28] MEDS: PHENAZOPYRIDINE 100 MG TABLET. PO ONE ×2 (13:13→21:46)
[2021-04-29] MEDS: IBUPROFEN 600 MG TABLET. PO ONE (08:26)
[2021-04-29] MEDS: CEPHALEXIN 250 MG CAPSULE PO ONE (08:27)
[2021-04-29 16:18] VITALS: BP 116/79
== END 2021-04-29 18:15 ==
LOC: ER 15:15
DX: R45.851 Suicidal ideations (principal); S93.401A Sprain of unspecified ligament of right ankle, initial encounter; F31.9 Bipolar disorder, unspecified; F41.9 Anxiety disorder, unspecified; Z20.822 Contact with and (suspected) exposure to COVID-19; X78.8XXA Intentional self-harm by other sharp object, initial encounter; Y93.89 Activity, other specified; Y92.89 Other specified places as the place of occurrence of the external cause; Y99.8 Other external cause status
CPT/HCPCS: 73610; 80053; 80307; 80329; 81001; 81025; 83735; 85025; 87086; 87426; 99285; G0480; U0003

== ENCOUNTER 2021-05-24 16:23 | Emergency (ER) | payer MEDICARE, OTHER ==
[~2021-05-24] VITALS: Ht 152.4 cm; Wt 99.1 kg
[2021-05-24 16:23] VITALS: BP 118/72
--- NOTE | 2021-05-24 16:45 | PHYS DOC ---
Past History Past Medical History: Anxiety, Bipolar, Constipation, Depression, Other Additional Past Medical Histor: Intellectual disability. syncope (CONSTANTINE HENDRICKS APRN) Past Surgical History: No Surgical History (CONSTANTINE HENDRICKS APRN) Smoking: Non-smoker Alcohol Use: None Drug Use: None (CONSTANTINE HENDRICKS APRN) General Adult EDM: Chief Complaint: SUICIDAL IDEATION HPI: HPI: Patient is a 20-year-old female that presents to the emergency department for psychiatric evaluation. Patient reports that she has had increased depression and feels stressed. She has history of anxiety, depression and bipolar disorder. She states that she was recently discharged from [facility] and was discharged with Zoloft and she has been taking that as prescribed. She does not follow up with anyone outpatient. Patient denies any suicidal ideation at this time but states that she does have a history of suicidal ideation and previous attempts. Patient denies any homicidal ideation patient denies any current complaints she just states "I am just not happy". (CONSTANTINE HENDRICKS APRN) Review of Systems: Review of Systems: 14 body systems of the review of systems have been reviewed. See HPI for pertinent positive and negative responses, otherwise all other systems are negative, nonpertinent or noncontributory (CONSTANTINE HENDRICKS APRN) Allergies: Allergies: Allergies Coded Allergies Type Severity Reaction Last Updated Verified banana Allergy Unknown Anaphylaxis 04/28/21 Yes (CONSTANTINE HENDRICKS APRN) Physical Exam: PE: Constitutional: Well developed, well nourished, no acute distress, non-toxic appearance. [] HENT: Normocephalic, atraumatic, bilateral external ears normal, oropharynx moist, no oral exudates, nose normal. [] Eyes: PERRL, EOMI, conjunctiva normal, no discharge. [] Neck: Normal range of motion, no stridor Cardiovascular:Heart rate regular rhythm, no murmur [] Lungs & Thorax: Bilateral breath sounds clear to auscultation [] Abdomen: Bowel sounds normal, soft, no tenderness, no masses, no pulsatile masses. [] Skin: Warm, dry, no erythema, no rash. [] Back: normal ROM Extremities: No tenderness, no cyanosis, no clubbing, ROM intact, no edema. [] Neurologic: Alert and oriented X 3, normal motor function, normal sensory function, no focal deficits noted. [] Psychologic: Affect normal, judgement normal, mood normal. [] (CONSTANTINE HENDRICKS APRN) Current Patient Data: Labs: Laboratory Tests Test 05/24/21 16:25 05/24/21 16:29 05/24/21 16:44 05/24/21 16:46 Urine Collection Type Unknown Urine Color Yellow Urine Clarity Hazy Urine pH 5.5 Urine Specific Adams >=1.030 Urine Protein Neg Urine Glucose (UA) Neg mg/dL Urine Ketones (Stick) Neg mg/dL Urine Blood Neg Urine Nitrite Neg Urine Bilirubin Neg Urine Urobilinogen Dipstick 0.2 mg/dL Urine Leukocyte Esterase Trace Urine RBC 0 /HPF Urine WBC 5-10 /HPF Urine Squamous Epithelial Cells Few /LPF Urine Bacteria Mod /HPF Urine Mucus Slight /LPF Urine Opiates Screen Neg Urine Methadone Screen Neg Urine Barbiturates Neg Urine Phencyclidine Screen Neg Urine Amphetamine/Methamphetamine Neg Urine Benzodiazepines Screen Neg Urine Cocaine Screen Neg Urine Cannabinoids Screen Neg Urine Ethyl Alcohol Neg Bedside Urine HCG, Qualitative hcg negative White Blood Count 10.1 x10^3/uL Red Blood Count 5.31 x10^6/uL Hemoglobin 15.1 g/dL Hematocrit 44.9 % Mean Corpuscular Volume 85 fL Mean Corpuscular Hemoglobin 29 pg Mean Corpuscular Hemoglobin Concent 34 g/dL Red Cell Distribution Width 14.2 % Platelet Count 335 x10^3/uL Neutrophils (%) (Auto) 61 % Lymphocytes (%) (Auto) 27 % Monocytes (%) (Auto) 9 % Eosinophils (%) (Auto) 3 % Basophils (%) (Auto) 0 % Neutrophils # (Auto) 6.2 x10^3uL Lymphocytes # (Auto) 2.7 x10^3/uL Monocytes # (Auto) 1.0 x10^3/uL Eosinophils # (Auto) 0.2 x10^3/uL Basophils # (Auto) 0.0 x10^3/uL Sodium Level 141 mmol/L Potassium Level 3.7 mmol/L Chloride Level 106 mmol/L Carbon Dioxide Level 24 mmol/L Anion Gap 11 Blood Urea Nitrogen 11 mg/dL Creatinine 0.9 mg/dL Estimated GFR (Cockcroft-Gault) 79.8 BUN/Creatinine Ratio 12 Glucose Level 105 mg/dL Calcium Level 9.3 mg/dL Total Bilirubin 0.5 mg/dL Aspartate Amino Transf (AST/SGOT) 19 U/L Alanine Aminotransferase (ALT/SGPT) 29 U/L Alkaline Phosphatase 92 U/L Total Protein 7.9 g/dL Albumin 3.9 g/dL Albumin/Globulin Ratio 1.0 SARS-CoV-2 Antigen (Rapid) Negative Laboratory Tests Test 05/24/21 16:29 POC Urine HCG, Qualitative hcg negative (Negative) (CONSTANTINE HENDRICKS APRN) EKG: EKG: [] (CONSTANTINE HENDRICKS APRN) Radiology/Procedures: Radiology/Procedures: [] (CONSTANTINE HENDRICKS APRN) Heart Score: C/O Chest Pain: N/A Risk Factors: Risk Factors: DM, Current or recent (<one month) smoker, HTN, HLP, family history of CAD, obesity. Risk Scores: Score 0 - 3: 2.5% MACE over next 6 weeks - Discharge Home Score 4 - 6: 20.3% MACE over next 6 weeks - Admit for Clinical Observation Score 7 - 10: 72.7% MACE over next 6 weeks - Early Invasive Strategies (CONSTANTINE HENDRICKS APRN) Course & Med Decision Making: Course & Med Decision Making Pertinent Labs and Imaging studies reviewed. (See chart for details) Patient presents to the emergency department for psychiatric evaluation. Patient is reporting that she is feeling depressed. Patient denies suicidal or homicidal ideation. Work up in the ER consisted of screening lab work for psych evaluation. Patient to be evaluated by psychiatric assessment team. Patient's work-up in the emergency department showed a urinary tract infection which will be treated with an antibiotic. Remainder of patient's lab work was unremarkable. Patient medically cleared at this time. Patient was evaluated by member of the psychiatric assessment team and a safety plan was developed. Patient was given resources to follow-up with. Patient advised to return to the emergency department if she develops any suicidal or homicidal ideation. Patient is complaining of a rash to her buttock, rash consistent with candiasis, treated with topical ointment. I discussed with patient all findings and diagnostic testing as well as the need to follow-up with PCP for further evaluation and treatment or return to the ER if any new or worsening symptoms. Strict return precautions were also discussed at length. Patient voiced understanding and agreement with the plan. Patient is hemodynamically stable at the time of disposition. (CONSTANTINE HENDRICKS APRN) Brad Disclaimer: Brad Disclaimer: This electronic medical record was generated, in whole or in part, using a voice recognition dictation system. (CONSTANTINE HENDRICKS APRN) Attending Co-Sign The patient was seen and interviewed as well as examined at the bedside. The chart was reviewed. The case was discussed. Agree with the plan of care. (SAEED HOOVER DO) Departure Departure: Impression: Primary Impression: Encounter for psychiatric assessment Additional Impression: Urinary tract infection Qualified Codes: N30.00 - Acute cystitis without hematuria Disposition: HOME / SELF CARE / HOMELESS Condition: GOOD Referrals: DANIEL CLARK MD (PCP) Patient Instructions: Depression, Adult Additional Instructions: You were seen in the emergency department for a psychiatric evaluation. Your blood work was unremarkable. Your urinalysis showed a urinary tract infection. This will be treated with an antibiotic. Please start and finish it completely. Please increase your fluids. Please avoid any bladder irritants like caffeine, sugary beverages or alcohol. Please follow-up with your primary care provider regarding these findings. You were evaluated by member of the psychiatric assessment team and a safety plan was developed, please adhere to the safety plan and follow-up with the resources that you were given. Continue to take your medications as prescribed. Please return to the emergency department if you develop any suicidal or homicidal ideation. Scripts Nystatin (NYSTATIN) 15 Gm Cream..g. 1 RAMBO TP BID for cutaneous candidiasis for 14 Days, #30 GM 0 Refills Prov: CONSTANTINE HENDRICKS APRN 05/24/21 Cephalexin (CEPHALEXIN) 500 Mg Tablet 1 TAB PO BID for uti for 7 Days, #14 TAB 0 Refills Prov: CONSTANTINE HENDRICKS APRN 05/24/21 CONSTANTINE HENDRICKS APRN May 24, 2021 16:45 SAEED HOOVER DO May 25, 2021 19:08
[2021-05-24 17:06] LABS: BARBITURATES NEG (NEG); BENZODIAZEPINES NEG (NEG); CANNABINOIDS NEG (NEG); COCAINE NEG (NEG); METHADONE NEG (NEG); OPIATES NEG (NEG); PHENCYCLIDINE NEG (NEG)
[2021-05-24 17:08] LABS: BASO % 0 % (0-3); EOS # 0.2 x10^3/uL (0.0-0.7); EOS % 3 % (0-3); HEMATOCRIT 44.9 % (36.0-47.0); HEMOGLOBIN 15.1 g/dL (12.0-15.5); LYMPH # 2.7 x10^3/uL (1.0-4.8); LYMPH % 27 % (24-48); MEAN CORPUSCULAR HEMOGLOBIN 29 pg (25-35); MEAN CORPUSCULAR HGB CONC 34 g/dL (31-37); MEAN CORPUSCULAR VOLUME 85 fL (79-100); MONO % 9 % (0-9); NEUT # 6.2 x10^3uL (1.8-7.7); NEUT % 61 % (31-73); PLATELET COUNT 335 x10^3/uL (140-400); RED BLOOD COUNT 5.31 x10^6/uL (3.50-5.40); RED CELL DISTRIBUTION WIDTH 14.2 % (11.5-14.5); WHITE BLOOD COUNT 10.1 x10^3/uL (4.0-11.0)
[2021-05-24 17:09] LABS: AMPHETAMINE/METHAMPHETAMINE NEG (NEG)
[2021-05-24 17:11] LABS: CALCIUM 9.3 mg/dL (8.5-10.1); CREATININE 0.9 mg/dL (0.6-1.0); GFR 79.8; POTASSIUM 3.7 mmol/L (3.5-5.1)
[2021-05-24 17:17] LABS: BACTERIA,URINE MOD /HPF (0-FEW); BILIRUBIN,URINE NEG (NEG); CLARITY,URINE HAZY; COLOR,URINE YELLOW; GLUCOSE,URINE NEG (NEG); NITRITE,URINE NEG (NEG); RBC,URINE 0 /HPF (0-2); SQUAMOUS EPITHELIAL CELL,UR FEW /LPF; UROBILINOGEN,URINE 0.2 mg/dL (0.2 mg/dL)
[2021-05-24 17:25] LABS: ALBUMIN 3.9 g/dL (3.4-5.0); TOTAL BILIRUBIN 0.5 mg/dL (0.2-1.0); TOTAL PROTEIN 7.9 g/dL (6.4-8.2)
[2021-05-24] MEDS ORDERED: CEPH500T PO (18:42)
[2021-05-24] MEDS ORDERED: NYST15CR TP (19:03)
== END 2021-05-24 19:04 | disposition home or self-care (01) ==
LOC: ER 16:23
DX: Z00.8 Encounter for other general examination (principal); N30.00 Acute cystitis without hematuria; F41.9 Anxiety disorder, unspecified; F31.9 Bipolar disorder, unspecified; Z20.822 Contact with and (suspected) exposure to COVID-19; Z91.013 Allergy to seafood
CPT/HCPCS: 80053; 80307; 81001; 81025; 85025; 87086; 87426; 99283; C9803; U0003

== ENCOUNTER 2021-05-24 20:15 | Emergency (ER) | payer MEDICARE, OTHER ==
[~2021-05-24] VITALS: Ht 152.4 cm; Wt 99.1 kg
[2021-05-24 20:15] VITALS: BP 106/73
[~2021-05-24 20:15] MED LIST changes: +NYST15CR TP
--- NOTE | 2021-05-24 21:12 | PHYS DOC ---
Past History Past Medical History: Anxiety, Bipolar, Constipation, Depression, Other Additional Past Medical Histor: Intellectual disability. syncope (CONSTANTINE HENDRICKS APRN) Past Surgical History: No Surgical History (CONSTANTINE HENDRICKS APRN) Smoking: Non-smoker Alcohol Use: None Drug Use: None (CONSTANTINE HENDRICKS APRN) General Adult EDM: Chief Complaint: SUICIDAL IDEATION HPI: HPI: Patient is a 20-year-old female who presents to the emergency department for suicidal ideation. Patient does not have an active plan. Patient was just seen in this emergency department within the hour for feeling depressed. Patient was medically cleared and evaluated by the psychiatric assessment team and a safety plan was developed and she was discharged to her caseworker Shanelle. Patient reports that she got an argument with Shanelle on the way home and is now suicidal. Patient denies any homicidal ideation. She denies any current complaints. (CONSTANTINE HENDRICKS APRN) Review of Systems: Review of Systems: 14 body systems of the review of systems have been reviewed. See HPI for pertinent positive and negative responses, otherwise all other systems are negative, nonpertinent or noncontributory (CONSTANTINE HENDRICKS APRN) Allergies: Allergies: Allergies Coded Allergies Type Severity Reaction Last Updated Verified banana Allergy Unknown Anaphylaxis 04/28/21 Yes (CONSTANTINE HENDRICKS APRN) Physical Exam: PE: Constitutional: Well developed, well nourished, no acute distress, non-toxic appearance. [] HENT: Normocephalic, atraumatic, bilateral external ears normal, oropharynx moist, no oral exudates, nose normal. [] Eyes: PERRL, EOMI, conjunctiva normal, no discharge. [] Neck: Normal range of motion, no stridor Cardiovascular:Heart rate regular rhythm, no murmur [] Lungs & Thorax: Bilateral breath sounds clear to auscultation [] Abdomen: Bowel sounds normal, soft, no tenderness, no masses, no pulsatile masses. [] Skin: Warm, dry, no erythema, no rash. [] Back: Normal range of motion Extremities: No tenderness, no cyanosis, no clubbing, ROM intact, no edema. [] Neurologic: Alert and oriented X 3, normal motor function, normal sensory function, no focal deficits noted. [] Psychologic: Affect normal, judgement normal, mood normal. [] (CONSTANTINE HENDRICKS APRN) Current Patient Data: Vital Signs: Vital Signs Date Time Temp Pulse Resp B/P (MAP) Pulse Ox O2 Delivery O2 Flow Rate FiO2 05/24/21 20:15 98.9 89 16 106/73 (84) 97 Room Air (CONSTANTINE HENDRICKS APRN) EKG: EKG: [] (CONSTANTINE HENDRICKS APRN) Radiology/Procedures: Radiology/Procedures: [] (CONSTANTINE HENDRICKS APRN) Heart Score: C/O Chest Pain: N/A Risk Factors: Risk Factors: DM, Current or recent (<one month) smoker, HTN, HLP, family history of CAD, obesity. Risk Scores: Score 0 - 3: 2.5% MACE over next 6 weeks - Discharge Home Score 4 - 6: 20.3% MACE over next 6 weeks - Admit for Clinical Observation Score 7 - 10: 72.7% MACE over next 6 weeks - Early Invasive Strategies (CONSTANTINE HENDRICKS APRN) C/O Chest Pain: N/A (NEAL VILLARREAL DO) Course & Med Decision Making: Course & Med Decision Making Pertinent Labs and Imaging studies reviewed. (See chart for details) [] Patient presents to the emergency department for suicidal ideation. Patient was seen within the hour in this ER and was medically cleared and evaluated by the psychiatric assessment team. Patient is now suicidal. Patient does not have an active plan. Patient was supposed to follow-up with [facility] tomorrow but she is requesting inpatient treatment. PAT team is attempting to place patient but is required to have Covid PCR results, placement patient at psychiatric facility pending Covid PCR results 0028. I discussed patients case with supervising physician and he will assume patient care at this time due to shift change 0055. (CONSTANTINE HENDRICKS APRN) Course & Med Decision Making I assumed care of patient after comprehensive signout from off going physician, no acute events overnight I saw patient yesterday and oversaw initial injury. Medically cleared and evaluated by mental health professionals at length Patient ultimately deemed safe for discharge back home with safety plan and arrangements for different skilled nursing placement in place Strict return precautions were discussed with patient with good understanding, all questions and concerns addressed prior to ER departure (NEAL VILLARREAL DO) Brad Disclaimer: Dragon Disclaimer: This electronic medical record was generated, in whole or in part, using a voice recognition dictation system. (CONSTANTINE HENDRICKS APRN) Attending Co-Sign The patient was seen and interviewed as well as examined at the bedside. The chart was reviewed. The case was discussed. Agree with the plan of care. (SAEED HOOVER DO) Departure Departure: Impression: Primary Impression: Encounter for psychiatric assessment Additional Impression: Suicidal ideation Disposition: HOME / SELF CARE / HOMELESS Condition: STABLE Referrals: DANIEL CLARK MD (PCP) Additional Instructions: As discussed prior to ER departure, you are medically cleared given your evaluation in the ER setting. You were evaluated by our behavioral health professionals and deemed fit for discharge home with strict adherence to provided safety plan If any concerning signs or symptoms present prior to outpatient follow-up with mental health professionals please do not hesitate to come back for repeat evaluation. It was a pleasure to take care of you and I wish you the best going forward CONSTANTINE HENDRICKS APRN May 24, 2021 21:11 NEAL VILLARREAL DO May 25, 2021 16:23 SAEED HOOVER DO May 25, 2021 19:18
--- NOTE | 2021-05-28 11:04 | NUR ---
Attempted to reach patient with covid results. No answer. Was not able to leave a message.
== END 2021-05-25 17:00 | disposition home or self-care (01) ==
LOC: ER 20:15
DX: Z00.8 Encounter for other general examination (principal); R45.851 Suicidal ideations; F41.9 Anxiety disorder, unspecified; F31.9 Bipolar disorder, unspecified; Z91.018 Allergy to other foods
CPT/HCPCS: 99285

== ENCOUNTER 2021-09-01 00:37 | Emergency (ER) | payer MEDICARE, OTHER ==
[~2021-09-01] VITALS: Ht 152.4 cm; Wt 99.1 kg
--- NOTE | 2021-09-01 00:41 | PHYS DOC ---
Past History Past Medical History: Anxiety, Bipolar, Constipation, Depression, Other Additional Past Medical Histor: Intellectual disability. syncope Past Surgical History: No Surgical History Smoking: Non-smoker Alcohol Use: None Drug Use: None Adult General HPI HPI Patient is a 20-year-old female with a past medical history significant for anxiety, depression, bipolar and fibromyalgia who presents to the emergency department with a chief complaint of vaginal bleeding. States she has had some spotting weeks had some darkish vaginal bleeding today with some lower abdominal cramping. States it is about time for her menstrual cycle. Denies any recent unprotected intercourse or history of STIs. States she is having some trouble at the home that she is living in and is going to leave and has not told him yet so she is having some stress about that. Denies any suicidal ideation, homicidal ideation, hallucinations or ingestions illicit drugs or alcohol. Denies any recent traumas, travels, illnesses, fevers, headache, lightheadedness, chest pain, shortness of breath, nausea, vomiting, diarrhea. Denies any dysuria. Review of Systems Review of Systems Review of systems otherwise unremarkable except noted in HPI Allergies Allergies Allergies Coded Allergies Type Severity Reaction Last Updated Verified banana Allergy Unknown Anaphylaxis 04/28/21 Yes Physical Exam Physical Exam Constitutional: Well developed, well nourished, no acute distress, non-toxic appearance. [] HENT: Normocephalic, atraumatic, oropharynx moist, no oral exudates, nose normal. [] Eyes: conjunctiva normal, no discharge. [] Neck: Normal range of motion, no tenderness, supple, no stridor. [] Cardiovascular:Heart rate regular rhythm, no murmur [] Lungs & Thorax: Review of systems otherwise unremarkable except noted in HPI Abdomen: Bowel sounds normal, soft, no tenderness, no masses, no pulsatile masses. [] Skin: Warm, dry, no erythema, no rash. [] Back: no CVA tenderness. [] Extremities: No tenderness, no cyanosis, no clubbing, ROM intact, no edema. [] Neurologic: Alert and oriented X 3, no focal deficits noted. [] Psychologic: Affect normal, judgement normal, mood normal. [] EKG EKG [] Radiology/Procedures Radiology/Procedures [] Heart Score C/O Chest Pain: No Risk Factors: Risk Factors: DM, Current or recent (<one month) smoker, HTN, HLP, family history of CAD, obesity. Risk Scores: Risk Factors: DM, Current or recent (<one month) smoker, HTN, HLP, family history of CAD, obesity. Course & Med Decision Making Course & Med Decision Making Patient is a 20-year-old female who presents with vaginal bleeding and cramps Vital signs not concerning. Physical exam noted above. negative. Patient states she went through only 1 pad today. Discussed differential with patient including dysfunctional uterine bleeding and start of her menstrual cycle Discussed symptomatic treatment at home. Advised to follow-up in the morning with a primary care physician. Given contact information and community resource packet for local free primary care physicians and other resources. Gave strict return precautions to the ED. [facility]. Patient grateful, verbalized understanding and agreed with plan of discharge. [] Dragon Disclaimer Dragon Disclaimer This electronic medical record was generated, in whole or in part, using a voice recognition dictation system. Departure Departure: Impression: Primary Impression: Vaginal bleeding Additional Impressions: Menstrual cramps Menstrual changes Disposition: 01 HOME / SELF CARE / HOMELESS Condition: STABLE Referrals: DANIEL CLARK MD (PCP) Patient Instructions: Uterine Bleeding, Dysfunctional Additional Instructions: Thank you for coming into the emergency department tonight and allowing us to take care of you. Please read all of the attached information carefully to go over things we discussed. You can continue Tylenol, ibuprofen and Benadryl every 6-8 hours as needed for menstrual cramps. Please follow-up in the morning with a primary care physician update on your ED visit and set up a follow-up as soon as you can. You were given a community resource sheet with local primary care physicians, the guidance Center and other resources. Please read fully and utilize as needed. Please come back with new or concerning symptoms as discus sed. Problem Qualifiers RYNE COVARRUBIAS MD Sep 01, 2021 00:41
[2021-09-01] MEDS ORDERED: lamotrigine (01:02)
[2021-09-01] MEDS ORDERED: trazodone (01:02)
[2021-09-01] MEDS ORDERED: melatonin (01:02)
[2021-09-01 01:26] LABS: COLOR,URINE YELLOW
[2021-09-01 01:27] LABS: BACTERIA,URINE FEW /HPF (0-FEW); CLARITY,URINE HAZY; GLUCOSE,URINE NEG (NEG); NITRITE,URINE NEG (NEG); RBC,URINE OCC /HPF (0-2); SQUAMOUS EPITHELIAL CELL,UR FEW /LPF; UROBILINOGEN,URINE 0.2 mg/dL (0.2 mg/dL)
[2021-09-01] MEDS ORDERED: ACETAMINOPHEN 500 MG TABLET PO ONE (01:30)
[2021-09-01] MEDS ORDERED: IBUPROFEN 600 MG TABLET. PO ONE (01:30)
[2021-09-01] MEDS ORDERED: diphenhydrAMINE HCL 25 MG CAPSULE PO ONE (01:30)
[2021-09-01] MEDS ORDERED: PANTOPRAZOLE IV 40 MG VIAL. IVP ONE (02:00)
[2021-09-01 03:30] VITALS: BP 108/78
== END 2021-09-01 03:30 | disposition home or self-care (01) ==
LOC: ER 00:37
DX: N94.6 Dysmenorrhea, unspecified (principal); N93.8 Other specified abnormal uterine and vaginal bleeding; F41.9 Anxiety disorder, unspecified; F31.9 Bipolar disorder, unspecified; M79.7 Fibromyalgia; Z91.018 Allergy to other foods
CPT/HCPCS: 81001; 81025; 87086; 99284; Q0163

== ENCOUNTER 2021-09-30 21:39 | Emergency (ER) | payer MEDICARE, OTHER ==
[~2021-09-30] VITALS: Ht 152.4 cm; Wt 99.1 kg
[~2021-09-30 21:39] MED LIST changes: +lamotrigine; +melatonin; +trazodone
[2021-09-30 22:58] LABS: BASO % 0 % (0-3); EOS # 0.1 x10^3/uL (0.0-0.7); EOS % 1 % (0-3); HEMATOCRIT 43.2 % (36.0-47.0); HEMOGLOBIN 14.5 g/dL (12.0-15.5); LYMPH # 2.2 x10^3/uL (1.0-4.8); LYMPH % 23 % (24-48); MEAN CORPUSCULAR HEMOGLOBIN 29 pg (25-35); MEAN CORPUSCULAR HGB CONC 34 g/dL (31-37); MEAN CORPUSCULAR VOLUME 85 fL (79-100); MONO # 0.9 x10^3/uL (0.0-1.1); MONO % 9 % (0-9); NEUT # 6.6 x10^3uL (1.8-7.7); NEUT % 67 % (31-73); PLATELET COUNT 282 x10^3/uL (140-400); RED BLOOD COUNT 5.07 x10^6/uL (3.50-5.40); RED CELL DISTRIBUTION WIDTH 14.4 % (11.5-14.5); WHITE BLOOD COUNT 9.8 x10^3/uL (4.0-11.0)
[2021-09-30 23:00] LABS: U PREG PATIENT NEGATIVE (NEG)
[2021-09-30 23:03] LABS: BARBITURATES NEG (NEG); BENZODIAZEPINES NEG (NEG); CANNABINOIDS NEG (NEG); COCAINE NEG (NEG); METHADONE NEG (NEG); OPIATES NEG (NEG); PHENCYCLIDINE NEG (NEG)
[2021-09-30 23:06] LABS: CALCIUM 9.5 mg/dL (8.5-10.1); CREATININE 0.9 mg/dL (0.6-1.0)
[2021-09-30 23:10] LABS: AMPHETAMINE/METHAMPHETAMINE NEG (NEG)
[2021-09-30 23:12] LABS: ALBUMIN/GLOBULIN RATIO 1.4 (1.0-1.7); TOTAL BILIRUBIN 0.5 mg/dL (0.2-1.0); TOTAL PROTEIN 6.8 g/dL (6.4-8.2)
[2021-09-30 23:19] LABS: BACTERIA,URINE MOD /HPF (0-FEW); CLARITY,URINE CLEAR; COLOR,URINE YELLOW; GLUCOSE,URINE NEG (NEG); NITRITE,URINE NEG (NEG); RBC,URINE 0 /HPF (0-2); SQUAMOUS EPITHELIAL CELL,UR MOD /LPF; UROBILINOGEN,URINE 0.2 mg/dL (0.2 mg/dL)
[2021-09-30 23:21] LABS: ACETAMIN < 2.0 mcg/mL (10-30); ETHANOL < 10 mg/dL (0-10); SALIC 1.2 mg/dL (2.8-20.0)
[2021-10-01] MEDS ORDERED: traZODone 50 MG TABLET. PO ONE (03:00)
--- NOTE | 2021-10-01 05:49 | PHYS DOC ---
Past History Past Medical History: Anxiety, Bipolar, Constipation, Depression, Other Additional Past Medical Histor: Intellectual disability. syncope Past Surgical History: No Surgical History Smoking: Non-smoker Alcohol Use: None Drug Use: None General Adult EDM: Chief Complaint: SUICIDAL IDEATION HPI: HPI: Patient is a 21-year-old female with history of bipolar disorder as well as depression. She presents with suicidal thoughts. Initially she told us that she was here for palpitations and had taken a caffeine pill earlier. [facility] she tells us that she has been depressed and is thought about taking a handful of pills or cutting her wrists. This feeling a depression has been getting worse. She does have feelings of hopelessness as well as a plan. Review of Systems: Review of Systems: Constitutional: Denies fever Eyes: Denies change in visual acuity or eye pain HENT: Denies sore throat Respiratory: Denies shortness of breath Cardiovascular: Denies chest pain GI: Denies abd pain : Denies dysuria Musculoskeletal: Denies back or extremity injury Integument: Denies rash or skin lesions Neurologic: Denies headache, focal weakness or sensory changes All other systems were reviewed and found to be within normal limits, except as documented in this note. Current Medications: Current Meds: Current Medications Medications (Trade) Dose Ordered Sig/Daniel Start Time Stop Time Status Last Admin Dose Admin Trazodone HCl (Desyrel) 50 mg 1X ONCE 10/01/21 03:00 10/01/21 03:09 DC 10/01/21 03:00 50 MG Allergies: Allergies: Allergies Coded Allergies Type Severity Reaction Last Updated Verified banana Allergy Severe Anaphylaxis 09/01/21 Yes Physical Exam: PE: Constitutional: Well developed, well nourished, no acute distress, non-toxic appearance. HENT: Normocephalic, atraumatic, bilateral external ears normal, mucosa moist, nose normal. Eyes: EOMI, conjunctiva normal, no discharge. Neck: Normal range of motion, supple, no stridor, no meningeal signs. Cardiovascular: Regular rate and rhythm Lungs & Thorax: Bilateral breath sounds clear to auscultation Abdomen: Soft, no tenderness or obvious masses Skin: Warm, dry, no erythema, no rash. Extremities: No tenderness, no cyanosis, no clubbing, ROM intact, no edema. Neurologic: Alert and oriented, normal motor function, normal sensory function, no focal deficits noted. Psychologic: Affect somewhat flat, judgement normal, mood is depressed. Current Patient Data: Labs: Laboratory Tests Test 09/30/21 21:41 09/30/21 22:25 POC Urine HCG, Qualitative hcg negative (Negative) White Blood Count 9.8 x10^3/uL (4.0-11.0) Red Blood Count 5.07 x10^6/uL (3.50-5.40) Hemoglobin 14.5 g/dL (12.0-15.5) Hematocrit 43.2 % (36.0-47.0) Mean Corpuscular Volume 85 fL (79-100) Mean Corpuscular Hemoglobin 29 pg (25-35) Mean Corpuscular Hemoglobin Concent 34 g/dL (31-37) Red Cell Distribution Width 14.4 % (11.5-14.5) Platelet Count 282 x10^3/uL (140-400) Neutrophils (%) (Auto) 67 % (31-73) Lymphocytes (%) (Auto) 23 % (24-48) L Monocytes (%) (Auto) 9 % (0-9) Eosinophils (%) (Auto) 1 % (0-3) Basophils (%) (Auto) 0 % (0-3) Neutrophils # (Auto) 6.6 x10^3uL (1.8-7.7) Lymphocytes # (Auto) 2.2 x10^3/uL (1.0-4.8) Monocytes # (Auto) 0.9 x10^3/uL (0.0-1.1) Eosinophils # (Auto) 0.1 x10^3/uL (0.0-0.7) Basophils # (Auto) 0.0 x10^3/uL (0.0-0.2) Urine Collection Type Unknown Urine Color Yellow Urine Clarity Clear Urine pH 6.0 Urine Specific [place] >=1.030 Urine Protein Neg (NEG-TRACE) Urine Glucose (UA) Neg mg/dL (NEG) Urine Ketones (Stick) 80 mg/dL (NEG) Urine Blood Neg (NEG) Urine Nitrite Neg (NEG) Urine Bilirubin Small (NEG) Urine Urobilinogen Dipstick 0.2 mg/dL (0.2 mg/dL) Urine Leukocyte Esterase Trace (NEG) Urine RBC 0 /HPF (0-2) Urine WBC 5-10 /HPF (0-4) Urine Squamous Epithelial Cells Mod /LPF Urine Bacteria Mod /HPF (0-FEW) Urine Test Negative (NEG) Sodium Level 140 mmol/L (136-145) Potassium Level 4.0 mmol/L (3.5-5.1) Chloride Level 103 mmol/L (98-107) Carbon Dioxide Level 23 mmol/L (21-32) Anion Gap 14 (6-14) Blood Urea Nitrogen 12 mg/dL (7-20) Creatinine 0.9 mg/dL (0.6-1.0) Estimated GFR (Cockcroft-Gault) 79.0 BUN/Creatinine Ratio 13 (6-20) Glucose Level 83 mg/dL (70-99) Calcium Level 9.5 mg/dL (8.5-10.1) Total Bilirubin 0.5 mg/dL (0.2-1.0) Aspartate Amino Transferase (AST) 28 U/L (15-37) Alanine Aminotransferase (ALT) 31 U/L (14-59) Alkaline Phosphatase 84 U/L (46-116) Total Protein 6.8 g/dL (6.4-8.2) Albumin 4.0 g/dL (3.4-5.0) Albumin/Globulin Ratio 1.4 (1.0-1.7) Salicylates Level 1.2 mg/dL (2.8-20.0) L Salicylate Last Dose Date Salicylate Last Dose Time Urine Opiates Screen Neg (NEG) Urine Methadone Screen Neg (NEG) Acetaminophen Level < 2.0 mcg/mL (10-30) L Acetaminophen Last Dose Date Acetaminophen Last Dose Time Urine Barbiturates Neg (NEG) Urine Phencyclidine Screen Neg (NEG) Urine Amphetamine/Methamphetamine Neg (NEG) Urine Benzodiazepines Screen Neg (NEG) Urine Cocaine Screen Neg (NEG) Urine Cannabinoids Screen Neg (NEG) Ethyl Alcohol Level < 10 mg/dL (0-10) Urine Ethyl Alcohol Neg (NEG) Vital Signs: Vital Signs Date Time Temp Pulse Resp B/P (MAP) Pulse Ox O2 Delivery O2 Flow Rate FiO2 09/30/21 21:55 98.5 105 18 138/80 (99) 96 Room Air EKG: EKG: [] Radiology/Procedures: Radiology/Procedures: [] Heart Score: C/O Chest Pain: No Risk Factors: Risk Factors: DM, Current or recent (<one month) smoker, HTN, HLP, family history of CAD, obesity. Risk Scores: Score 0 - 3: 2.5% MACE over next 6 weeks - Discharge Home Score 4 - 6: 20.3% MACE over next 6 weeks - Admit for Clinical Observation Score 7 - 10: 72.7% MACE over next 6 weeks - Early Invasive Strategies Course & Med Decision Making: Course & Med Decision Making Pertinent Labs and Imaging studies reviewed. (See chart for details) [] This is a 21-year-old female with depression and suicidal ideation. She has been assessed by our behavioral health team. She will need to be assessed by another individual after 7 AM for potential inpatient treatment of her depression with suicidal ideation. Final disposition will be signed over to the oncoming physician pending this assessment. Brad Disclaimer: Brad Disclaimer: This electronic medical record was generated, in whole or in part, using a voice recognition dictation system. Departure Departure: Impression: Primary Impression: Suicidal ideation Additional Impression: Depression Referrals: DANIEL CLARK MD (PCP) BETO BAZZI MD Oct 01, 2021 05:49
[2021-10-01 10:00] VITALS: BP 118/62
== END 2021-10-01 13:45 | disposition home or self-care (01) ==
LOC: ER 21:39
DX: R45.851 Suicidal ideations (principal); R00.2 Palpitations; F31.9 Bipolar disorder, unspecified; F41.9 Anxiety disorder, unspecified; Z20.822 Contact with and (suspected) exposure to COVID-19; Z91.018 Allergy to other foods
CPT/HCPCS: 36415; 80053; 80307; 80329; 81001; 81025; 85025; 99285; C9803; G0480; U0003

== ENCOUNTER 2021-10-03 11:13 | Emergency (ER) | payer MEDICARE, OTHER ==
[~2021-10-03] VITALS: Ht 152.4 cm; Wt 99.1 kg
--- NOTE | 2021-10-03 11:28 | PHYS DOC ---
Past History Past Medical History: Anxiety, Bipolar, Constipation, Depression, Other Additional Past Medical Histor: Intellectual disability. syncope (CONSTANTINE HENDRICKS APRN) Past Surgical History: No Surgical History (CONSTANTINE HENDRICKS APRN) Smoking: Non-smoker Alcohol Use: None Drug Use: None (CONSTANTINE HENDRICKS APRN) General Adult EDM: Chief Complaint: SUICIDAL IDEATION HPI: HPI: Patient is a 21-year-old female who presents to the emergency department via EMS for suicidal ideation. Patient reports that she took one of her diet caffeine pills today in an attempt to hurt herself. Patient also states that she has knives but they were taken away from her. She reports that police took away her diet pills and her knives. She reports feeling jittery. She denies homicidal ideation, drug use or alcohol use, nausea vomiting. She has a history of anxiety, depression, developmental delay and bipolar disorder. She does take medications as directed. She follows up with the guidance Center but states that they do not help her. (CONSTANTINE HENDRICKS APRN) Review of Systems: Review of Systems: Neuro: reports jitteriness, see HPI Respiratory: report non productive cough Cardiovascular: reports palpitations/jittery Psychiatric: see HPI (CONSTANTINE HENDRICKS APRN) Allergies: Allergies: Allergies Coded Allergies Type Severity Reaction Last Updated Verified banana Allergy Severe Anaphylaxis 09/01/21 Yes (CONSTANTINE HENDRICKS APRN) Physical Exam: PE: Constitutional: Well developed, well nourished, no acute distress, non-toxic appearance. [] HENT: Normocephalic, atraumatic, bilateral external ears normal, oropharynx moist, no oral exudates, nose normal. [] Eyes: PERRL, EOMI, conjunctiva normal, no discharge. [] Neck: Normal range of motion, no stridor Cardiovascular:Heart rate regular rhythm, no murmur [] Lungs & Thorax: Bilateral breath sounds clear to auscultation [] Abdomen: Bowel sounds normal, soft, no tenderness, obese, no masses, no pulsatile masses. [] Skin: Warm, dry, no erythema, no rash. [] Back: No tenderness, normal ROM Extremities: No tenderness, no cyanosis, no clubbing, ROM intact, no edema. [] Neurologic: Alert and oriented X 3, normal motor function, normal sensory function, no focal deficits noted. [] Psychologic: Affect normal, judgement normal, mood normal. [] (CONSTANTINE HENDRICKS APRN) Current Patient Data: Labs: Laboratory Tests Test 10/03/21 10:50 10/03/21 11:32 10/03/21 11:38 10/03/21 11:40 Bedside Urine HCG, Qualitative hcg negative Urine Collection Type Clean catch Urine Color Yellow Urine Clarity Clear Urine pH 6.0 Urine Specific Hawkins 1.020 Urine Protein Neg Urine Glucose (UA) Neg mg/dL Urine Ketones (Stick) Neg mg/dL Urine Blood Neg Urine Nitrite Neg Urine Bilirubin Neg Urine Urobilinogen Dipstick 0.2 mg/dL Urine Leukocyte Esterase Neg Urine RBC 0 /HPF Urine WBC 0 /HPF Urine Squamous Epithelial Cells Few /LPF Urine Bacteria 0 /HPF Urine Opiates Screen Neg Urine Methadone Screen Neg Urine Barbiturates Neg Urine Phencyclidine Screen Neg Urine Amphetamine/Methamphetamine Neg Urine Benzodiazepines Screen Neg Urine Cocaine Screen Neg Urine Cannabinoids Screen Neg Urine Ethyl Alcohol Neg White Blood Count 9.3 x10^3/uL Red Blood Count 5.26 x10^6/uL Hemoglobin 14.9 g/dL Hematocrit 45.6 % Mean Corpuscular Volume 87 fL Mean Corpuscular Hemoglobin 28 pg Mean Corpuscular Hemoglobin Concent 33 g/dL Red Cell Distribution Width 14.6 % Platelet Count 287 x10^3/uL Neutrophils (%) (Auto) 69 % Lymphocytes (%) (Auto) 23 % Monocytes (%) (Auto) 7 % Eosinophils (%) (Auto) 2 % Basophils (%) (Auto) 0 % Neutrophils # (Auto) 6.3 x10^3uL Lymphocytes # (Auto) 2.1 x10^3/uL Monocytes # (Auto) 0.6 x10^3/uL Eosinophils # (Auto) 0.2 x10^3/uL Basophils # (Auto) 0.0 x10^3/uL Sodium Level 144 mmol/L Potassium Level 4.4 mmol/L Chloride Level 108 mmol/L Carbon Dioxide Level 24 mmol/L Anion Gap 12 Blood Urea Nitrogen 12 mg/dL Creatinine 0.8 mg/dL Estimated GFR (Cockcroft-Gault) 90.5 BUN/Creatinine Ratio 15 Glucose Level 89 mg/dL Calcium Level 9.2 mg/dL Total Bilirubin 0.3 mg/dL Aspartate Amino Transf (AST/SGOT) 25 U/L Alanine Aminotransferase (ALT/SGPT) 32 U/L Alkaline Phosphatase 86 U/L Troponin I High Sensitivity 7 ng/L Total Protein 7.0 g/dL Albumin 4.0 g/dL Albumin/Globulin Ratio 1.3 Salicylates Level 0.8 mg/dL Salicylate Last Dose Date Unknown Salicylate Last Dose Time Unknown Acetaminophen Level < 2.0 mcg/mL Acetaminophen Last Dose Date Unknown Acetaminophen Last Dose Time Unknown Ethyl Alcohol Level < 10 mg/dL SARS-CoV-2 Antigen (Rapid) Negative Current Medications Medications (Trade) Dose Ordered Sig/Daniel Route PRN Reason Start Time Stop Time Status Last Admin Dose Admin Acetaminophen (Tylenol) 650 mg 1X ONCE PO 10/03/21 12:00 10/03/21 12:01 DC 10/03/21 12:00 (CONSTANTINE HENDRICKS APRN) EKG: EKG: [] (CONSTANTINE HENDRICKS APRN) Radiology/Procedures: Radiology/Procedures: []REASON: cough X 2 weeks PROCEDURE: PORTABLE CHEST 1V XR CHEST 1V History: Cough for 2 weeks. Comparison: None. Technique: AP radiograph of the chest. Findings: The lungs are adequately and symmetrically inflated. No airspace consolidation, pleural effusion or pneumothorax. The cardiomediastinal silhouette and pulmonary vasculature are within normal limits. No acute osseous abnormality. Soft tissues are unremarkable. Impression: 1. No acute cardiopulmonary process. Electronically signed by: Geovanny Minaya MD (10/03/2021 11:47 AM) [id number] DICTATED AND SIGNED BY: GEOVANNY MINAYA MD DATE: 10/03/21 1147 CC: CONSTANTINE HENDRICKS APRN; WILDA DUMONT DO; DANIEL CLARK MD ~ (CONSTANTINE HENDRICKS APRN) Heart Score: C/O Chest Pain: N/A Risk Factors: Risk Factors: DM, Current or recent (<one month) smoker, HTN, HLP, family history of CAD, obesity. Risk Scores: Score 0 - 3: 2.5% MACE over next 6 weeks - Discharge Home Score 4 - 6: 20.3% MACE over next 6 weeks - Admit for Clinical Observation Score 7 - 10: 72.7% MACE over next 6 weeks - Early Invasive Strategies (CONSTANTINE HENDRICKS APRN) Course & Med Decision Making: Course & Med Decision Making Pertinent Labs and Imaging studies reviewed. (See chart for details) Patient presents to the emergency department for suicidal ideation. Patient reports that she had a plan to hurt herself by taking diet caffeine pills. Patient reports that she took 1 caffeine pill and is feeling jittery and feels palpitations. Patient is unsure of how much caffeine is in her diet pill. Patient is reporting a cough that is and going on for a while. Patient has a history of anxiety, depression and bipolar disorder as well as developmental delay. Patient placed in suicide precautions. One-to-one was ordered. Blood work and urinalysis performed to medically clear patient. An EKG and troponin were ordered as she is feeling palpitations. Patient is acting appropriately in the emergency department. Her vital signs are stable. Patient to be evaluated by member the psychiatric assessment team. Patient's lab work is unremarkable. Urinalysis not show any infection, her UDS was positive for low salicylates at 0.8 which is not toxic. Patient is medically cleared at this time 1315. Patient was evaluated by member the psychiatric assessment team and they are attempting to place patient at [facility]. Patient's regional environmental manager is in route. Patient will be accepted by [facility]. Accepting physician is Dr. Osman. Patient to be transported to facility via EMS. (CONSTANTINE HENDRICKS APRN) Dragon Disclaimer: Dragon Disclaimer: This electronic medical record was generated, in whole or in part, using a voice recognition dictation system. (CONSTANTINE HENDRICKS APRN) Departure Departure: Impression: Primary Impression: Suicidal ideation Disposition: 65 [facility] Condition: GOOD Referrals: DANIEL CLARK MD (PCP) Attending Signature Attending Signature I have reviewed the PA/MANAGER CONTRACT's note and plan of care. I was available for consultation as needed during the patient's visit in the emergency department. I agree with the clinical impression, plan, and disposition. (WILDA DUMONT DO) CONSTANTINE HENDRICKS APRN Oct 03, 2021 11:28 WILDA DUMONT DO Oct 04, 2021 10:47
--- NOTE | 2021-10-03 11:50 | RAD ---
XR CHEST 1V History: Cough for 2 weeks. Comparison: None. Technique: AP radiograph of the chest. Findings: The lungs are adequately and symmetrically inflated. No airspace consolidation, pleural effusion or p neumothorax. The cardiomediastinal silhouette and pulmonary vasculature are within normal limits. No acute osseous abnormality. Soft tissues are unremarkable. Impression: 1. No acute cardiopulmonary process. Electronically signed by: Geovanny Monge MD (10/03/2021 11:47 AM) [id number]
[2021-10-03] MEDS ORDERED: ACETAMINOPHEN 325 MG TABLET PO ONE (12:00)
[2021-10-03 12:13] LABS: BASO % 0 % (0-3); EOS # 0.2 x10^3/uL (0.0-0.7); EOS % 2 % (0-3); HEMATOCRIT 45.6 % (36.0-47.0); HEMOGLOBIN 14.9 g/dL (12.0-15.5); LYMPH # 2.1 x10^3/uL (1.0-4.8); LYMPH % 23 % (24-48); MEAN CORPUSCULAR HEMOGLOBIN 28 pg (25-35); MEAN CORPUSCULAR HGB CONC 33 g/dL (31-37); MEAN CORPUSCULAR VOLUME 87 fL (79-100); MONO # 0.6 x10^3/uL (0.0-1.1); MONO % 7 % (0-9); NEUT # 6.3 x10^3uL (1.8-7.7); NEUT % 69 % (31-73); PLATELET COUNT 287 x10^3/uL (140-400); RED BLOOD COUNT 5.26 x10^6/uL (3.50-5.40); RED CELL DISTRIBUTION WIDTH 14.6 % (11.5-14.5); WHITE BLOOD COUNT 9.3 x10^3/uL (4.0-11.0)
[2021-10-03 12:27] LABS: CALCIUM 9.2 mg/dL (8.5-10.1); CREATININE 0.8 mg/dL (0.6-1.0); GFR 90.5; POTASSIUM 4.4 mmol/L (3.5-5.1)
[2021-10-03 12:28] LABS: BARBITURATES NEG (NEG); BENZODIAZEPINES NEG (NEG); CANNABINOIDS NEG (NEG); COCAINE NEG (NEG); METHADONE NEG (NEG); OPIATES NEG (NEG); PHENCYCLIDINE NEG (NEG)
[2021-10-03 12:32] LABS: ALBUMIN/GLOBULIN RATIO 1.3 (1.0-1.7); TOTAL BILIRUBIN 0.3 mg/dL (0.2-1.0)
[2021-10-03 12:36] LABS: CLARITY,URINE CLEAR; COLOR,URINE YELLOW; GLUCOSE,URINE NEG (NEG); UROBILINOGEN,URINE 0.2 mg/dL (0.2 mg/dL)
[2021-10-03 12:37] LABS: ACETAMIN < 2.0 mcg/mL (10-30); ETHANOL < 10 mg/dL (0-10); SALIC 0.8 mg/dL (2.8-20.0)
[2021-10-03 12:37] LABS: AMPHETAMINE/METHAMPHETAMINE NEG (NEG); BACTERIA,URINE 0 /HPF (0-FEW); NITRITE,URINE NEG (NEG); RBC,URINE 0 /HPF (0-2); SQUAMOUS EPITHELIAL CELL,UR FEW /LPF; WBC,URINE 0 /HPF (0-4)
[2021-10-03 16:34] VITALS: BP 111/60
[2021-10-03] MEDS ORDERED: ONDANSETRON PF 4 MG/2 ML VIAL. ONE (17:25)
--- NOTE | 2021-10-03 19:53 | EKG ---
[address] [address] Test Date: 2021-10-03 Test Time: 11:30:44 Pat Name: ALEISHA ALICEA Department: Room: Gender: F Monitoring Specialist: : 2000 Requested By: CONSTANTINE HENDRICKS Order Number: [id number] Reading MD: Mitch Vasquez Measurements Intervals Steele Rate: 98 P: 33 UT: 136 QRS: 16 QRSD: 78 T: -1 QT: 334 QTc: 428 Interpretive Statements SINUS RHYTHM NORMAL ECG RI6.02 Compared to ECG 07/13/2020 17:40:54 No significant changes Electronically Signed On 10-07-2021 13:50:23 CDT by Mitch Vasquez
== END 2021-10-03 19:34 ==
LOC: ER 11:13
DX: R45.851 Suicidal ideations (principal); F41.9 Anxiety disorder, unspecified; F31.9 Bipolar disorder, unspecified; Z20.822 Contact with and (suspected) exposure to COVID-19; Z91.018 Allergy to other foods
CPT/HCPCS: 36415; 71045; 80053; 80307; 80329; 81001; 81025; 84484; 85025; 87426; 93005; 99285; C9803; G0480; U0003